=== PATIENT | female | born 1940 | race Caucasian/White ===

== ENCOUNTER 2017-08-05 12:08 | Inpatient (IN) | payer OTHER, BC ==
[~2017-08-05] VITALS: Ht 163.8 cm; Wt 78.4 kg
[~2017-08-05 12:08] MED LIST: AVALIDE 150-121 EACH PO; CALTRATE + D PO; CALTRATE 600600 MG PO; CENTRUM SILVER1 EAC3 PO; CENTRUM SILVER1 EAC5 PO; CLIMARA0.05 MG PO; CLIMARA0.05 MG TD; Chloraseptic Spray C MM; Claritin,Alavart PO; DUONEB3 ML IH; Habitrol,Nicoderm CQ TD; Tears Naturale II,Ar BOTH EYES; Xopenex HFA Inhaler IH; predniSONE PO
[2017-08-05 13:08] LABS: BASOPHIL (%) 0.3 % (0-1); EOSINOPHIL (%) 0.1 % (0-5); HEMATOCRIT 33.7 % (36.0-46.0); HEMOGLOBIN 10.8 G/DL (11.9-15.5); IMMATURE GRANULOCYTE (%) 0.5 % (0.0-0.7); LYMPHOCYTE (%) 5.4 % (15-42); LYMPHOCYTE COUNT 0.6 K/uL (1.0-2.8); MCH 28.5 PG (29.0-34.0); MCV 88.9 FL (83-99); MONOCYTE (%) 6.7 % (3-12); MONOCYTE COUNT 0.7 K/uL (0-0.8); NEUTROPHIL COUNT 9.4 K/uL (1.8-6.4); PLATELET COUNT 208 K/uL (156-360); RBC DIS.WIDTH-CV 13.3 % (11.8-14.6); RBC DIS.WIDTH-SD 43.5 % (39-53); RED BLOOD COUNT 3.79 M/uL (3.80-5.20); WHITE BLOOD COUNT 10.8 K/uL (4.1-10.2)
[2017-08-05 13:21] LABS: ALBUMIN 4.2 g/dL (3.2-4.8)
[2017-08-05 13:22] LABS: CHLORIDE 100 mEq/L (99-109); POTASSIUM 3.9 mEq/L (3.7-5.4); SODIUM 140 mEq/L (136-147)
[2017-08-05 13:24] LABS: GLUCOSE 137 mg/dL (70-99); TOTAL PROTEIN 6.9 g/dL (6.4-8.3)
[2017-08-05 13:26] LABS: TOTAL BILIRUBIN 0.5 mg/dL (0.0-1.0)
[2017-08-05 13:27] LABS: ALKALINE PHOSPHATASE 93 IU/L (3-129)
[2017-08-05 13:28] LABS: CREATININE 0.8 mg/dL (0.6-1.3); GFR ESTIMATE (CALCULATED) > 59 mL/min/
[2017-08-05 13:29] LABS: AST (GOT) 31 IU/L (2-34); UREA NITROGEN (BUN) 15 mg/dL (9-23)
[2017-08-05 13:30] LABS: ALT (GPT) 26 IU/L (3-49)
[2017-08-05 13:32] LABS: TROP-I INTERPRETATION NEGATIVE; TROPONIN-I < 0.01 ng/mL (0.0-0.30)
[2017-08-05] MEDS ORDERED: HYZAAR 100-21 TABLET PO (15:12)
[2017-08-05] MEDS ORDERED: CALTRATE PLUS1 EACH PO (15:12)
[2017-08-05] MEDS ORDERED: ASCORBIC ACID500 M3 PO (15:13)
[2017-08-05] MEDS ORDERED: BREO ELLIPTA I1 EACH IH (15:13)
[2017-08-05 17:01] VITALS: BP 153/67
[2017-08-05 19:30] VITALS: BP 142/66
[2017-08-05 19:40] LABS: TROP-I INTERPRETATION NEGATIVE; TROPONIN-I 0.04 ng/mL (0.0-0.30)
[2017-08-05 23:51] VITALS: BP 153/71
[2017-08-06 01:38] LABS: TROP-I INTERPRETATION NEGATIVE; TROPONIN-I 0.18 ng/mL (0.0-0.30)
[2017-08-06 03:31] VITALS: BP 164/74
[2017-08-06 05:34] LABS: CHLORIDE 100 mEq/L (99-109); POTASSIUM 4.3 mEq/L (3.7-5.4); SODIUM 138 mEq/L (136-147)
[2017-08-06 05:35] LABS: GLUCOSE 179 mg/dL (70-99)
[2017-08-06 05:39] LABS: GFR ESTIMATE (CALCULATED) 57 mL/min/
[2017-08-06 05:42] LABS: UREA NITROGEN (BUN) 23 mg/dL (9-23)
[2017-08-06 09:15] VITALS: BP 158/73
[2017-08-06 09:59] LABS: TROP-I INTERPRETATION NEGATIVE; TROPONIN-I 0.23 ng/mL (0.0-0.30)
[2017-08-06 12:11] VITALS: BP 178/90
[2017-08-06 15:16] LABS: TROP-I INTERPRETATION NEGATIVE; TROPONIN-I 0.21 ng/mL (0.0-0.30)
[2017-08-06 16:05] VITALS: BP 143/70
[2017-08-07 00:07] VITALS: BP 135/65
[2017-08-07 04:10] VITALS: BP 134/72
[2017-08-07 07:20] VITALS: BP 134/78
[2017-08-07] MEDS ORDERED: AMOX TR-K CLV1 EAC4 PO (12:28)
[2017-08-07] MEDS ORDERED: CARDIZEM CD,CA120 MG PO (12:33)
[2017-08-07] MEDS ORDERED: PREDNISONE10 MG PO (12:37)
[2017-08-07 12:41] VITALS: BP 149/71
== END 2017-08-07 15:54 | disposition home health service (06) | DRG 192 ==
LOC: 5WEST → EME 12:08 → EDOF 14:59 → 5WEST 14:59 → EDOF 14:59 → ENRESERV 15:10 → 5WEST 16:48
PROVIDERS: Emergency Medicine; Internal Medicine; Nurse Practitioner Adult Health
DX: J44.1 Chronic obstructive pulmonary disease with (acute) exacerbation (principal); J44.0 Chronic obstructive pulmonary disease with (acute) lower respiratory infection; J20.9 Acute bronchitis, unspecified; I10 Essential (primary) hypertension; D64.9 Anemia, unspecified; E66.3 Overweight; Z87.891 Personal history of nicotine dependence; Z99.81 Dependence on supplemental oxygen; Z90.710 Acquired absence of both cervix and uterus; Z85.41 Personal history of malignant neoplasm of cervix uteri; Z90.49 Acquired absence of other specified parts of digestive tract; Z68.29 Body mass index [BMI] 29.0-29.9, adult; Z79.51 Long term (current) use of inhaled steroids; Z80.9 Family history of malignant neoplasm, unspecified; Z82.49 Family history of ischemic heart disease and other diseases of the circulatory system
CPT/HCPCS: 71046; 80048; 80053; 84484; 85025; 85379; 87502; 93005; 93306; 94640; 94640 76; 94799; 99202; G0378; J1650; J2920; J2930

== ENCOUNTER 2017-09-21 09:54 | Day surgery (SDC) | payer OTHER, BC ==
[~2017-09-21] VITALS: Ht 165.1 cm; Wt 79.8 kg
[~2017-09-21 09:54] MED LIST changes: +AMOX TR-K CLV1 EAC4 PO; +ASCORBIC ACID500 M3 PO; +ATORVASTATIN CA40 MG PO; +BREO ELLIPTA I1 EACH IH; +CALTRATE PLUS1 EACH PO; +CARDIZEM CD,CA120 MG PO; +CARDIZEM CD,CA240 MG PO; +FLONASE16 G1 BOTH NARES; +HYZAAR 100-21 TABLET PO; +PREDNISONE10 MG PO; +PROAIR HFA8.5 GM IH; +PROBIOTIC250 MG PO; +VITAMIN C WIT1000 MG PO
[2017-09-21 15:17] VITALS: BP 138/66
[2017-09-21 16:00] VITALS: BP 138/66
[2017-09-21 19:15] VITALS: BP 127/60
[2017-09-21 23:58] VITALS: BP 180/79
[2017-09-22 00:01] VITALS: BP 158/70
[2017-09-22 02:50] VITALS: BP 112/72
[2017-09-22 05:40] LABS: BASOPHIL (%) 0.3 % (0-1); EOSINOPHIL (%) 0.3 % (0-5); HEMOGLOBIN 9.3 G/DL (11.9-15.5); IMMATURE GRANULOCYTE (%) 0.3 % (0.0-0.7); LYMPHOCYTE (%) 12.2 % (15-42); LYMPHOCYTE COUNT 0.8 K/uL (1.0-2.8); MCH 28.4 PG (29.0-34.0); MCV 91.5 FL (83-99); MONOCYTE (%) 10.3 % (3-12); MONOCYTE COUNT 0.6 K/uL (0-0.8); NEUTROPHIL (%) 76.6 % (45-76); NEUTROPHIL COUNT 4.8 K/uL (1.8-6.4); RBC DIS.WIDTH-CV 14.5 % (11.8-14.6); RBC DIS.WIDTH-SD 48.9 % (39-53); RED BLOOD COUNT 3.28 M/uL (3.80-5.20); WHITE BLOOD COUNT 6.2 K/uL (4.1-10.2)
[2017-09-22 06:09] LABS: CHLORIDE 103 MEQ/L (99-109); CREATININE 0.8 MG/DL (0.6-1.3); GFR ESTIMATE (CALCULATED) > 59 mL/min/; GLUCOSE 116 mg/dL (70-99); POTASSIUM 3.6 MEQ/L (3.7-5.4); SODIUM 141 MEQ/L (136-147); UREA NITROGEN (BUN) 13 mg/dL (9-23)
[2017-09-22 06:52] LABS: PLAT.SUFFICIENCY ADEQUATE; PLATELET COUNT 165 K/uL (156-360)
[2017-09-22 07:54] VITALS: BP 153/78
[2017-09-22] MEDS ORDERED: NITROSTAT0.4 MG SL (10:35)
[2017-09-22] MEDS ORDERED: ASPIR-LOW81 MG PO (10:35)
[2017-09-22] MEDS ORDERED: CLOPIDOGREL75 MG PO (10:35)
[2017-09-22] MEDS ORDERED: METOPROLOL SUCC25 MG PO (10:49)
[2017-09-22 11:20] VITALS: BP 147/66
== END 2017-09-22 14:10 | disposition home or self-care (01) ==
LOC: CATH 09:54 → ENRESERV 12:19 → 2SOUTH 12:45 → 4EAST 12:45 → 2SOUTH 12:45 → ENRESERV 12:52 → 4EAST 15:08 → ENPENDDIS 09-22 14:00 → 4EAST 09-22 14:10
PROVIDERS: Internal Medicine Cardiovascular Disease
DX: I25.10 Atherosclerotic heart disease of native coronary artery without angina pectoris (principal); I25.41 Coronary artery aneurysm; J44.9 Chronic obstructive pulmonary disease, unspecified; Z99.81 Dependence on supplemental oxygen; I10 Essential (primary) hypertension; I27.20 Pulmonary hypertension, unspecified; D64.9 Anemia, unspecified; R04.0 Epistaxis
CPT/HCPCS: 80048; 85025; 85347; 93005; 94640; 94799; 99202; C1725; C1769; C1874; C1887; G0378; J0583; J1644; J2250; J3010; J7030

== ENCOUNTER 2017-10-09 13:18 | Inpatient (IN) | payer OTHER, BC ==
[~2017-10-09] VITALS: Ht 165.1 cm; Wt 98.9 kg
[~2017-10-09 13:18] MED LIST changes: +ASPIR-LOW81 MG PO; +CLOPIDOGREL75 MG PO; +HYZAAR 100-11 TABLET PO; -HYZAAR 100-21 TABLET PO; +METOPROLOL SUCC25 MG PO; +NITROSTAT0.4 MG SL
[2017-10-09 14:29] LABS: HEMATOCRIT 29.8 % (36.0-46.0); HEMOGLOBIN 9.6 G/DL (11.9-15.5); MCH 29.2 PG (29.0-34.0); MCHC 32.2 G/DL (30.0-36.0); MCV 90.6 FL (83-99); PLATELET COUNT 183 K/uL (156-360); RBC DIS.WIDTH-CV 13.7 % (11.8-14.6); RBC DIS.WIDTH-SD 45.7 % (39-53); RED BLOOD COUNT 3.29 M/uL (3.80-5.20); WHITE BLOOD COUNT 4.7 K/uL (4.1-10.2)
[2017-10-09 14:40] LABS: D-DIMER ELISA < 150.00 ng/mLDDU (<230)
[2017-10-09 14:43] LABS: CHLORIDE 98 mEq/L (99-109); POTASSIUM 3.7 mEq/L (3.7-5.4); SODIUM 142 mEq/L (136-147)
[2017-10-09 14:44] LABS: GLUCOSE 123 mg/dL (70-99)
[2017-10-09 14:48] LABS: CREATININE 0.9 mg/dL (0.6-1.3); GFR ESTIMATE (CALCULATED) > 59 mL/min/
[2017-10-09 14:49] LABS: UREA NITROGEN (BUN) 14 mg/dL (9-23)
[2017-10-09 14:52] LABS: TROP-I INTERPRETATION NEGATIVE; TROPONIN-I < 0.01 ng/mL (0.0-0.30)
[2017-10-09] MEDS ORDERED: DUONEB 2.5-0.5 M3 ML AEROSOL (17:06)
[2017-10-09] MEDS ORDERED: CLOPIDOGREL75 MG PO (17:07)
[2017-10-09] MEDS ORDERED: METOPROLOL SUCC25 MG PO (17:07)
[2017-10-09] MEDS ORDERED: ASPIR 8181 M1 PO (17:07)
[2017-10-09] MEDS ORDERED: NITROSTAT0.4 MG SL (17:08)
[2017-10-09] MEDS ORDERED: OXYGEN MC (17:10)
[2017-10-09 21:31] VITALS: BP 161/77
[2017-10-09 22:51] LABS: TROP-I INTERPRETATION NEGATIVE; TROPONIN-I < 0.01 ng/mL (0.0-0.30)
[2017-10-09 23:30] VITALS: BP 151/80
[2017-10-10 03:43] VITALS: BP 157/85
[2017-10-10 05:39] LABS: HEMOGLOBIN 9.9 G/DL (11.9-15.5); MCH 27.9 PG (29.0-34.0); MCHC 30.9 G/DL (30.0-36.0); MCV 90.1 FL (83-99); PLATELET COUNT 228 K/uL (156-360); RBC DIS.WIDTH-CV 13.5 % (11.8-14.6); RBC DIS.WIDTH-SD 45.1 % (39-53); RED BLOOD COUNT 3.55 M/uL (3.80-5.20); WHITE BLOOD COUNT 3.3 K/uL (4.1-10.2)
[2017-10-10 06:02] LABS: CHLORIDE 95 MEQ/L (99-109); CREATININE 0.8 MG/DL (0.6-1.3); GFR ESTIMATE (CALCULATED) > 59 mL/min/; GLUCOSE 162 mg/dL (70-99); POTASSIUM 3.7 MEQ/L (3.7-5.4); SODIUM 140 MEQ/L (136-147); UREA NITROGEN (BUN) 13 mg/dL (9-23)
[2017-10-10 07:25] VITALS: BP 185/85
[2017-10-10 11:19] VITALS: BP 166/80
[2017-10-10 17:08] VITALS: BP 163/77
[2017-10-10 19:10] VITALS: BP 166/77
[2017-10-10 23:06] VITALS: BP 133/60
[2017-10-11 04:35] VITALS: BP 127/64
[2017-10-11 08:00] VITALS: BP 135/68
[2017-10-11] MEDS ORDERED: ZITHROMAX500 MG PO (10:05)
[2017-10-11] MEDS ORDERED: PREDNISONE10 MG PO (10:08)
== END 2017-10-11 11:06 | disposition home or self-care (01) | DRG 190 ==
LOC: EME 13:18 → 5WEST 20:25 → EDOF 20:25 → ENRESERV 20:43 → 5WEST 21:27
PROVIDERS: Hospitalist; Physician Assistant Medical
DX: J44.1 Chronic obstructive pulmonary disease with (acute) exacerbation (principal); J96.21 Acute and chronic respiratory failure with hypoxia; I10 Essential (primary) hypertension; Z99.81 Dependence on supplemental oxygen; Z95.5 Presence of coronary angioplasty implant and graft; Z87.891 Personal history of nicotine dependence
CPT/HCPCS: 71046; 80048; 83880; 84484; 85027; 85379; 93005; 94640; 94640 76; 94799; 99202; 99281; 99285; G0378; J0360; J0456; J1644; J2920; J2930; J3475; J7030

== ENCOUNTER 2017-11-07 18:56 | Inpatient (IN) | payer OTHER, BC ==
[~2017-11-07] VITALS: Ht 165.1 cm; Wt 84.6 kg
[~2017-11-07 18:56] MED LIST changes: +ASPIR 8181 M1 PO; +DUONEB 2.5-0.5 M3 ML AEROSOL; +OXYGEN MC; +ZITHROMAX500 MG PO
[2017-11-07 19:25] LABS: HEMATOCRIT 25.6 % (36.0-46.0); MCH 28.8 PG (29.0-34.0); MCHC 31.3 G/DL (30.0-36.0); MCV 92.1 FL (83-99); RBC DIS.WIDTH-CV 14.5 % (11.8-14.6); RBC DIS.WIDTH-SD 49.1 % (39-53); WHITE BLOOD COUNT 4.4 K/uL (4.1-10.2)
[2017-11-07 19:26] LABS: PLATELET COUNT 309 K/uL (156-360); RED BLOOD COUNT 2.78 M/uL (3.80-5.20)
[2017-11-07 19:34] LABS: PTT 30.2 SEC (25-37)
[2017-11-07 20:02] LABS: ALBUMIN 3.9 G/DL (3.2-4.8); ALKALINE PHOSPHATASE 81 IU/L (3-129); ALT (GPT) 11 IU/L (3-49); AST (GOT) 16 IU/L (2-34); CHLORIDE 101 MEQ/L (99-109); CREATININE 0.8 MG/DL (0.6-1.3); GFR ESTIMATE (CALCULATED) > 59 mL/min/; GLUCOSE 132 mg/dL (70-99); POTASSIUM 3.5 MEQ/L (3.7-5.4); SODIUM 141 MEQ/L (136-147); TOTAL BILIRUBIN 0.3 MG/DL (0.0-1.0); TOTAL PROTEIN 6.4 G/DL (6.4-8.3); UREA NITROGEN (BUN) 11 mg/dL (9-23)
[2017-11-08] VITALS (13 sets, daily range): BP systolic 115–175; BP diastolic 60–78
[2017-11-08 08:19] LABS: HEMATOCRIT 29.5 % (36.0-46.0); HEMOGLOBIN 9.3 G/DL (11.9-15.5); MCV 89.9 FL (83-99)
[2017-11-08 20:05] LABS: HEMATOCRIT 30.3 % (36.0-46.0); HEMOGLOBIN 9.5 G/DL (11.9-15.5); MCV 89.6 FL (83-99)
[2017-11-09 04:03] VITALS: BP 137/65
[2017-11-09 06:43] LABS: CHLORIDE 103 MEQ/L (99-109); CREATININE 0.7 MG/DL (0.6-1.3); GFR ESTIMATE (CALCULATED) > 59 mL/min/; GLUCOSE 109 mg/dL (70-99); POTASSIUM 3.8 MEQ/L (3.7-5.4); SODIUM 144 MEQ/L (136-147); UREA NITROGEN (BUN) 5 mg/dL (9-23)
[2017-11-09 07:58] VITALS: BP 164/72
[2017-11-09 08:34] LABS: HEMATOCRIT 32.8 % (36.0-46.0); HEMOGLOBIN 10.2 G/DL (11.9-15.5); MCV 91.1 FL (83-99)
[2017-11-09 19:56] VITALS: BP 136/64
[2017-11-09 20:25] LABS: HEMATOCRIT 30.6 % (36.0-46.0); HEMOGLOBIN 9.4 G/DL (11.9-15.5); MCV 92.4 FL (83-99)
[2017-11-09 23:21] VITALS: BP 132/68
[2017-11-10 03:55] VITALS: BP 137/64
[2017-11-10 08:02] VITALS: BP 147/65
[2017-11-10 09:22] LABS: HEMATOCRIT 31.6 % (36.0-46.0); HEMOGLOBIN 9.5 G/DL (11.9-15.5); MCV 92.4 FL (83-99)
[2017-11-10 12:05] VITALS: BP 165/70
[2017-11-10 16:13] VITALS: BP 121/62
[2017-11-10 20:20] LABS: HEMATOCRIT 28.3 % (36.0-46.0); HEMOGLOBIN 8.8 G/DL (11.9-15.5); MCV 91.9 FL (83-99)
[2017-11-10 20:27] VITALS: BP 129/61
[2017-11-10 23:51] VITALS: BP 149/63
[2017-11-11 04:25] VITALS: BP 141/67
[2017-11-11 07:39] VITALS: BP 134/60
[2017-11-11 12:04] VITALS: BP 133/67
[2017-11-11 15:43] VITALS: BP 133/60
[2017-11-11 15:58] LABS: HEMATOCRIT 29.3 % (36.0-46.0); HEMOGLOBIN 9.1 G/DL (11.9-15.5); MCV 92.4 FL (83-99)
== END 2017-11-11 19:31 | disposition home or self-care (01) | DRG 394 ==
LOC: EME 18:56 → 3EAST 23:40 → EDOF 23:40 → ENRESERV 23:54 → 3EAST 11-08 02:42
PROVIDERS: Internal Medicine
PROC: 30233N1 Transfusion of Nonautologous Red Blood Cells into Peripheral Vein, Percutaneous Approach (ICD-10-PCS; 2017-11-07)
PROC: 0DJD8ZZ Inspection of Lower Intestinal Tract, Via Natural or Artificial Opening Endoscopic (ICD-10-PCS; principal; 2017-11-09)
DX: K63.5 Polyp of colon (principal); K57.30 Diverticulosis of large intestine without perforation or abscess without bleeding; K64.9 Unspecified hemorrhoids; J44.1 Chronic obstructive pulmonary disease with (acute) exacerbation; D50.0 Iron deficiency anemia secondary to blood loss (chronic); I25.10 Atherosclerotic heart disease of native coronary artery without angina pectoris; I25.41 Coronary artery aneurysm; Z99.81 Dependence on supplemental oxygen; I10 Essential (primary) hypertension; E78.5 Hyperlipidemia, unspecified; K80.20 Calculus of gallbladder without cholecystitis without obstruction; E66.9 Obesity, unspecified; Z68.31 Body mass index [BMI] 31.0-31.9, adult; I25.2 Old myocardial infarction; Z95.5 Presence of coronary angioplasty implant and graft; Z79.02 Long term (current) use of antithrombotics/antiplatelets; Z79.82 Long term (current) use of aspirin; Z87.891 Personal history of nicotine dependence; Z85.41 Personal history of malignant neoplasm of cervix uteri; Z90.710 Acquired absence of both cervix and uterus; Z80.1 Family history of malignant neoplasm of trachea, bronchus and lung; Z82.49 Family history of ischemic heart disease and other diseases of the circulatory system
CPT/HCPCS: 74177; 74270; 80048; 80053; 81003; 85014; 85018; 85027; 85610; 85730; 86850; 86900; 86901; 86920; 93005; 94640; 94640 76; 94799; 99202; 99281; 99285; J7030; P9016

== ENCOUNTER 2017-12-22 21:47 | Inpatient (IN) | payer OTHER, BC ==
[~2017-12-22] VITALS: Ht 165.1 cm; Wt 80.5 kg
[~2017-12-22 21:47] MED LIST changes: +ADULT LOW DOSE81 M1 PO; +CENTRUM SILVER1 EAC4 PO; +COZAAR100 MG PO; +FUROSEMIDE40 MG PO; +PLAVIX75 MG PO
[2017-12-23 06:32] VITALS: BP 139/63
[2017-12-23 09:43] LABS: METHEMOGLOBIN 0.8 % (0-1.5); PCO2 39 mm Hg (35-45); PO2 279 mm Hg (80-100); pH 7.46 (7.35-7.45)
[2017-12-23 09:44] LABS: BASE EXCESS 3.6 mEq/L (-3 to +3); BICARBONATE 17.7 mEq/L (22-26)
[2017-12-23 16:00] VITALS: BP 132/67
[2017-12-23 16:06] VITALS: BP 132/67
[2017-12-23 18:22] LABS: HEMATOCRIT 34.2 % (36.0-46.0); MCHC 32.2 G/DL (30.0-36.0); MCV 90.2 FL (83-99); PLATELET COUNT 195 K/uL (156-360); RBC DIS.WIDTH-CV 13.7 % (11.8-14.6); RBC DIS.WIDTH-SD 45.7 % (39-53); RED BLOOD COUNT 3.79 M/uL (3.80-5.20); WHITE BLOOD COUNT 11.4 K/uL (4.1-10.2)
[2017-12-23 18:47] LABS: CHLORIDE 106 MEQ/L (99-109); GFR ESTIMATE (CALCULATED) 57 mL/min/; GLUCOSE 174 mg/dL (70-99); MAGNESIUM 1.4 mg/dl (1.3-2.7); PHOSPHORUS 4.1 mg/dL (2.5-4.9); POTASSIUM 3.7 MEQ/L (3.7-5.4); SODIUM 140 MEQ/L (136-147); UREA NITROGEN (BUN) 12 mg/dL (9-23)
[2017-12-23 19:47] VITALS: BP 136/71
[2017-12-23 23:17] VITALS: BP 113/53
[2017-12-24 04:07] VITALS: BP 114/59
[2017-12-24 05:06] LABS: HEMATOCRIT 32.2 % (36.0-46.0); HEMOGLOBIN 10.2 G/DL (11.9-15.5); MCH 28.5 PG (29.0-34.0); MCHC 31.7 G/DL (30.0-36.0); MCV 89.9 FL (83-99); PLATELET COUNT 195 K/uL (156-360); RBC DIS.WIDTH-CV 14.2 % (11.8-14.6); RBC DIS.WIDTH-SD 46.6 % (39-53); RED BLOOD COUNT 3.58 M/uL (3.80-5.20); WHITE BLOOD COUNT 15.2 K/uL (4.1-10.2)
[2017-12-24 05:55] LABS: CHLORIDE 105 MEQ/L (99-109); CREATININE 1.3 MG/DL (0.6-1.3); GFR ESTIMATE (CALCULATED) 42 mL/min/; GLUCOSE 147 mg/dL (70-99); MAGNESIUM 1.3 mg/dl (1.3-2.7); PHOSPHORUS 3.2 mg/dL (2.5-4.9); POTASSIUM 4.1 MEQ/L (3.7-5.4); SODIUM 139 MEQ/L (136-147); UREA NITROGEN (BUN) 18 mg/dL (9-23)
[2017-12-24 07:13] VITALS: BP 122/67
[2017-12-24 11:10] VITALS: BP 115/65
[2017-12-24 15:22] VITALS: BP 103/59
[2017-12-24 20:20] VITALS: BP 115/57
[2017-12-25] VITALS (9 sets, daily range): BP systolic 103–164; BP diastolic 61–82
[2017-12-25 09:40] LABS: HEMATOCRIT 29.6 % (36.0-46.0); HEMOGLOBIN 9.2 G/DL (11.9-15.5); MCH 28.8 PG (29.0-34.0); MCHC 31.1 G/DL (30.0-36.0); MCV 92.8 FL (83-99); RBC DIS.WIDTH-CV 14.5 % (11.8-14.6); RBC DIS.WIDTH-SD 49.5 % (39-53); RED BLOOD COUNT 3.19 M/uL (3.80-5.20); WHITE BLOOD COUNT 15.1 K/uL (4.1-10.2)
[2017-12-25 10:05] LABS: CHLORIDE 102 MEQ/L (99-109); GLUCOSE 159 mg/dL (70-99); PHOSPHORUS 3.4 mg/dL (2.5-4.9); POTASSIUM 4.4 MEQ/L (3.7-5.4); SODIUM 135 MEQ/L (136-147); UREA NITROGEN (BUN) 23 mg/dL (9-23)
[2017-12-25 10:06] LABS: CREATININE 1.8 MG/DL (0.6-1.3); GFR ESTIMATE (CALCULATED) 29 mL/min/; MAGNESIUM 2.5 mg/dl (1.3-2.7)
[2017-12-25 10:14] LABS: PLAT.SUFFICIENCY ADEQUATE; PLATELET COUNT 178 K/uL (156-360)
[2017-12-25 15:36] LABS: TROP-I INTERPRETATION NEGATIVE; TROPONIN-I < 0.01 ng/mL (0.0-0.30)
[2017-12-25 21:17] LABS: TROP-I INTERPRETATION NEGATIVE; TROPONIN-I 0.01 ng/mL (0.0-0.30)
[2017-12-26] VITALS (10 sets, daily range): BP systolic 101–196; BP diastolic 61–89
[2017-12-26 02:15] LABS: HEMATOCRIT 30.4 % (36.0-46.0); HEMOGLOBIN 9.7 G/DL (11.9-15.5); MCV 91.6 FL (83-99)
[2017-12-26 02:25] LABS: CHLORIDE 105 mEq/L (99-109); POTASSIUM 4.6 mEq/L (3.7-5.4); SODIUM 137 mEq/L (136-147)
[2017-12-26 02:26] LABS: MAGNESIUM 2.4 mg/dL (1.3-2.7)
[2017-12-26 02:28] LABS: GLUCOSE 159 mg/dL (70-99)
[2017-12-26 02:31] LABS: CREATININE 1.7 mg/dL (0.6-1.3); GFR ESTIMATE (CALCULATED) 31 mL/min/; PHOSPHORUS 3.5 mg/dL (2.5-4.9)
[2017-12-26 02:32] LABS: UREA NITROGEN (BUN) 26 mg/dL (9-23)
[2017-12-26 02:41] LABS: TROP-I INTERPRETATION NEGATIVE; TROPONIN-I 0.02 ng/mL (0.0-0.30)
[2017-12-26 08:20] LABS: HEMOGLOBIN 9.6 G/DL (11.9-15.5); MCH 28.6 PG (29.0-34.0); MCV 92.3 FL (83-99); PLATELET COUNT 166 K/uL (156-360); RBC DIS.WIDTH-CV 14.5 % (11.8-14.6); RBC DIS.WIDTH-SD 49.2 % (39-53); RED BLOOD COUNT 3.36 M/uL (3.80-5.20); WHITE BLOOD COUNT 14.9 K/uL (4.1-10.2)
[2017-12-26 20:13] LABS: BASE EXCESS -4.5 mEq/L (-3 to +3); O2 SATURATION (CALCULATED) 91 % (95-99); PCO2 106 mm Hg (35-45); PO2 80 mm Hg (80-100); pH 7.03 (7.35-7.45)
[2017-12-26 20:14] LABS: COMMENTS - BLOOD GASES A+C; DEVICE HHFNC; FI02 60 %; O2 FLOW 50 L/MIN; SITE RR; TOTAL RESP RATE 21 resp/min
[2017-12-26 21:33] LABS: COMMENTS - BLOOD GASES C+; DEVICE 840 VENT; FI02 90 %; MECHANICAL RATE 16 resp/min; MODE AC PC; SITE ALINE; TOTAL RESP RATE 16 resp/min
[2017-12-26 21:34] LABS: BASE EXCESS -4.6 mEq/L (-3 to +3); BICARBONATE 26.1 mEq/L (22-26); CARBOXY HGB 1.6 % (0-5); INSPIRATION TIME 1.45 seconds; METHEMOGLOBIN 0.9 % (0-1.5); O2 SATURATION (CALCULATED) 99.9 % (95-99); PCO2 86 mm Hg (35-45); PEEP 5 CM/H20; PO2 348 mm Hg (80-100); PRESSURE CONTROL VENTILATION 32 CM H20; pH 7.09 (7.35-7.45)
[2017-12-26 21:43] LABS: HEMOGLOBIN 9.2 G/DL (11.9-15.5); MCHC 29.7 G/DL (30.0-36.0); MCV 94.5 FL (83-99); RBC DIS.WIDTH-CV 14.4 % (11.8-14.6); RBC DIS.WIDTH-SD 49.3 % (39-53); RED BLOOD COUNT 3.28 M/uL (3.80-5.20); WHITE BLOOD COUNT 13.6 K/uL (4.1-10.2)
[2017-12-26 21:50] LABS: PTT 26.2 SEC (25-37)
[2017-12-26 22:00] LABS: ALBUMIN 3.8 G/DL (3.2-4.8); ALKALINE PHOSPHATASE 50 IU/L (3-129); ALT (GPT) 15 IU/L (3-49); AST (GOT) 18 IU/L (2-34); CHLORIDE 107 MEQ/L (99-109); CREATININE 1.6 MG/DL (0.6-1.3); GFR ESTIMATE (CALCULATED) 33 mL/min/; GLUCOSE 205 mg/dL (70-99); MAGNESIUM 2.5 mg/dl (1.3-2.7); POTASSIUM 5.3 MEQ/L (3.7-5.4); SODIUM 136 MEQ/L (136-147); TOTAL BILIRUBIN 0.6 MG/DL (0.0-1.0); TOTAL PROTEIN 5.7 G/DL (6.4-8.3); UREA NITROGEN (BUN) 31 mg/dL (9-23)
[2017-12-26 22:16] LABS: PLAT.SUFFICIENCY ADEQUATE; PLATELET COUNT 175 K/uL (156-360)
[2017-12-27] VITALS: BP 127/61
[2017-12-27 00:05] LABS: COMMENTS - BLOOD GASES C+; DEVICE VENT; FI02 40 %; INSPIRATION TIME 1.15 seconds; MECHANICAL RATE 20 resp/min; MODE PC; PRESSURE CONTROL VENTILATION 30 CM H20; SITE ALINE; TOTAL RESP RATE 20 resp/min
[2017-12-27 00:06] LABS: PEEP 5 CM/H20
[2017-12-27 00:07] LABS: BASE EXCESS -5.6 mEq/L (-3 to +3); BICARBONATE 22.9 mEq/L (22-26); CARBOXY HGB 1.7 % (0-5); METHEMOGLOBIN 1.2 % (0-1.5); O2 SATURATION (CALCULATED) 97.9 % (95-99); PCO2 60 mm Hg (35-45); PO2 90 mm Hg (80-100); pH 7.19 (7.35-7.45)
[2017-12-27 05:09] LABS: SITE ALINE
[2017-12-27 05:10] LABS: CARBOXY HGB 1.2 % (0-5); COMMENTS - BLOOD GASES C+; DEVICE VENT; FI02 40 %; INSPIRATION TIME 1.15 seconds; MECHANICAL RATE 24 resp/min; MODE PC; O2 SATURATION (CALCULATED) 98.4 % (95-99); PCO2 39 mm Hg (35-45); PEEP 5 CM/H20; PO2 133 mm Hg (80-100); PRESSURE CONTROL VENTILATION 30 CM H20; TOTAL RESP RATE 24 resp/min; pH 7.34 (7.35-7.45)
[2017-12-27 05:11] LABS: BASE EXCESS -4.4 mEq/L (-3 to +3); METHEMOGLOBIN 1.7 % (0-1.5)
[2017-12-27 05:40] LABS: HEMOGLOBIN 8.9 G/DL (11.9-15.5); MCH 28.3 PG (29.0-34.0); MCHC 30.7 G/DL (30.0-36.0); MCV 92.1 FL (83-99); PLATELET COUNT 164 K/uL (156-360); RBC DIS.WIDTH-CV 14.5 % (11.8-14.6); RBC DIS.WIDTH-SD 49.1 % (39-53); RED BLOOD COUNT 3.15 M/uL (3.80-5.20); WHITE BLOOD COUNT 9.9 K/uL (4.1-10.2)
[2017-12-27 06:33] LABS: CHLORIDE 106 MEQ/L (99-109); CREATININE 1.6 MG/DL (0.6-1.3); GFR ESTIMATE (CALCULATED) 33 mL/min/; GLUCOSE 246 mg/dL (70-99); MAGNESIUM 2.4 mg/dl (1.3-2.7); PHOSPHORUS 1.3 mg/dL (2.5-4.9); POTASSIUM 4.1 MEQ/L (3.7-5.4); SODIUM 138 MEQ/L (136-147); UREA NITROGEN (BUN) 31 mg/dL (9-23)
[2017-12-27 08:00] VITALS: BP 130/68
[2017-12-27 11:58] LABS: COMMENTS - BLOOD GASES +C; DEVICE PB980; FI02 30 %; INSPIRATION TIME 0.7 seconds; MECHANICAL RATE 20 resp/min; MODE ACPC; PCO2 35 mm Hg (35-45); PEEP 5 CM/H20; PO2 85 mm Hg (80-100); PRESSURE CONTROL VENTILATION 25 CM H20; SITE A-LINE; TOTAL RESP RATE 20 resp/min; pH 7.43 (7.35-7.45)
[2017-12-27 11:59] LABS: BASE EXCESS -0.9 mEq/L (-3 to +3); BICARBONATE 23.2 mEq/L (22-26); CARBOXY HGB 1.4 % (0-5); METHEMOGLOBIN 1.3 % (0-1.5); O2 SATURATION (CALCULATED) 98.4 % (95-99)
[2017-12-27 15:26] LABS: COMMENTS - BLOOD GASES +C; DEVICE PB980; FI02 30 %; MODE SPONT; PCO2 49 mm Hg (35-45); PEEP 5 CM/H20; PO2 66 mm Hg (80-100); PRES. SUPPORT 5 CM/H2O; SITE A-LINE; TOTAL RESP RATE 24 resp/min
[2017-12-27 15:27] LABS: BASE EXCESS -2.5 mEq/L (-3 to +3); BICARBONATE 24.1 mEq/L (22-26); CARBOXY HGB 1.7 % (0-5); O2 SATURATION (CALCULATED) 95.2 % (95-99)
[2017-12-27 22:00] VITALS: BP 139/70
[2017-12-28 06:13] LABS: HEMATOCRIT 29.8 % (36.0-46.0); HEMOGLOBIN 9.2 G/DL (11.9-15.5); MCH 28.1 PG (29.0-34.0); MCHC 30.9 G/DL (30.0-36.0); MCV 91.1 FL (83-99); PLATELET COUNT 192 K/uL (156-360); RBC DIS.WIDTH-CV 14.6 % (11.8-14.6); RBC DIS.WIDTH-SD 49.6 % (39-53); RED BLOOD COUNT 3.27 M/uL (3.80-5.20); WHITE BLOOD COUNT 15.4 K/uL (4.1-10.2)
[2017-12-28 06:43] LABS: CHLORIDE 107 MEQ/L (99-109); CREATININE 1.3 MG/DL (0.6-1.3); GFR ESTIMATE (CALCULATED) 42 mL/min/; GLUCOSE 172 mg/dL (70-99); MAGNESIUM 2.5 mg/dl (1.3-2.7); POTASSIUM 4.6 MEQ/L (3.7-5.4); SODIUM 138 MEQ/L (136-147); UREA NITROGEN (BUN) 37 mg/dL (9-23)
[2017-12-28 06:44] LABS: PHOSPHORUS 2.2 mg/dL (2.5-4.9)
[2017-12-28 20:00] VITALS: BP 170/93
[2017-12-28 23:00] VITALS: BP 160/87
[2017-12-29] VITALS (18 sets, daily range): BP systolic 110–177; BP diastolic 50–86
[2017-12-29 05:53] LABS: BASOPHIL (%) 0.1 % (0-1); EOSINOPHIL (%) 0 % (0-5); HEMATOCRIT 33.7 % (36.0-46.0); HEMOGLOBIN 10.3 G/DL (11.9-15.5); IMMATURE GRANULOCYTE (%) 0.8 % (0.0-0.7); LYMPHOCYTE (%) 1.1 % (15-42); LYMPHOCYTE COUNT 0.2 K/uL (1.0-2.8); MCH 28.3 PG (29.0-34.0); MCHC 30.6 G/DL (30.0-36.0); MCV 92.6 FL (83-99); MONOCYTE (%) 5.2 % (3-12); MONOCYTE COUNT 0.9 K/uL (0-0.8); NEUTROPHIL (%) 92.8 % (45-76); NEUTROPHIL COUNT 16.6 K/uL (1.8-6.4); RBC DIS.WIDTH-CV 14.6 % (11.8-14.6); RBC DIS.WIDTH-SD 50.6 % (39-53); RED BLOOD COUNT 3.64 M/uL (3.80-5.20); WHITE BLOOD COUNT 17.9 K/uL (4.1-10.2)
[2017-12-29 06:11] LABS: CHLORIDE 109 MEQ/L (99-109); CREATININE 1.3 MG/DL (0.6-1.3); GFR ESTIMATE (CALCULATED) 42 mL/min/; GLUCOSE 148 mg/dL (70-99); MAGNESIUM 2.5 mg/dl (1.3-2.7); PHOSPHORUS 3.4 mg/dL (2.5-4.9); POTASSIUM 5.2 MEQ/L (3.7-5.4); SODIUM 142 MEQ/L (136-147); UREA NITROGEN (BUN) 40 mg/dL (9-23)
[2017-12-29 06:26] LABS: PLATELET COUNT 261 K/uL (156-360)
[2017-12-30] VITALS (8 sets, daily range): BP systolic 131–174; BP diastolic 64–90
[2017-12-30 05:25] LABS: HEMATOCRIT 32.5 % (36.0-46.0); MCH 28.3 PG (29.0-34.0); MCHC 30.8 G/DL (30.0-36.0); MCV 92.1 FL (83-99); NRBC (%) 0.1 /100 WBC (0-0); PLATELET COUNT 246 K/uL (156-360); RBC DIS.WIDTH-CV 14.6 % (11.8-14.6); RBC DIS.WIDTH-SD 49.5 % (39-53); RED BLOOD COUNT 3.53 M/uL (3.80-5.20); WHITE BLOOD COUNT 13.9 K/uL (4.1-10.2)
[2017-12-30 05:55] LABS: CHLORIDE 110 MEQ/L (99-109); GLUCOSE 141 mg/dL (70-99); MAGNESIUM 2.5 mg/dl (1.3-2.7); PHOSPHORUS 3.1 mg/dL (2.5-4.9); POTASSIUM 4.7 MEQ/L (3.7-5.4); SODIUM 145 MEQ/L (136-147); UREA NITROGEN (BUN) 47 mg/dL (9-23)
[2017-12-30 06:48] LABS: CREATININE 1.2 MG/DL (0.6-1.3); GFR ESTIMATE (CALCULATED) 46 mL/min/
[2017-12-31] VITALS: BP 147/73
[2017-12-31 04:00] VITALS: BP 158/70
[2017-12-31 05:27] LABS: HEMATOCRIT 32.8 % (36.0-46.0); HEMOGLOBIN 9.9 G/DL (11.9-15.5); MCHC 30.2 G/DL (30.0-36.0); MCV 92.7 FL (83-99); PLATELET COUNT 235 K/uL (156-360); RBC DIS.WIDTH-CV 14.4 % (11.8-14.6); RBC DIS.WIDTH-SD 49.2 % (39-53); RED BLOOD COUNT 3.54 M/uL (3.80-5.20)
[2017-12-31 06:19] LABS: CHLORIDE 112 MEQ/L (99-109); GFR ESTIMATE (CALCULATED) 57 mL/min/; GLUCOSE 147 mg/dL (70-99); MAGNESIUM 2.4 mg/dl (1.3-2.7); PHOSPHORUS 3.7 mg/dL (2.5-4.9); POTASSIUM 4.2 MEQ/L (3.7-5.4); SODIUM 149 MEQ/L (136-147); UREA NITROGEN (BUN) 46 mg/dL (9-23)
[2017-12-31 12:13] VITALS: BP 162/74
[2017-12-31 16:17] VITALS: BP 135/64
[2017-12-31 21:00] VITALS: BP 142/65
[2017-12-31 21:43] LABS: HEMATOCRIT 30.6 % (36.0-46.0); HEMOGLOBIN 9.4 G/DL (11.9-15.5); MCH 28.8 PG (29.0-34.0); MCHC 30.7 G/DL (30.0-36.0); MCV 93.9 FL (83-99); NRBC (%) 0.1 /100 WBC (0-0); PLATELET COUNT 221 K/uL (156-360); RBC DIS.WIDTH-CV 14.5 % (11.8-14.6); RBC DIS.WIDTH-SD 50.5 % (39-53); RED BLOOD COUNT 3.26 M/uL (3.80-5.20); WHITE BLOOD COUNT 18.8 K/uL (4.1-10.2)
[2018-01-01] VITALS (10 sets, daily range): BP systolic 116–165; BP diastolic 55–79
[2018-01-01 01:26] LABS: HEMATOCRIT 30.2 % (36.0-46.0); HEMOGLOBIN 9.4 G/DL (11.9-15.5); MCHC 31.1 G/DL (30.0-36.0); MCV 93.2 FL (83-99); NRBC (%) 0.1 /100 WBC (0-0); PLATELET COUNT 212 K/uL (156-360); RBC DIS.WIDTH-CV 14.5 % (11.8-14.6); RBC DIS.WIDTH-SD 49.4 % (39-53); RED BLOOD COUNT 3.24 M/uL (3.80-5.20); WHITE BLOOD COUNT 18.8 K/uL (4.1-10.2)
[2018-01-01 04:59] LABS: HEMATOCRIT 30.2 % (36.0-46.0); MCH 28.1 PG (29.0-34.0); MCHC 29.8 G/DL (30.0-36.0); MCV 94.4 FL (83-99); NRBC (%) 0.2 /100 WBC (0-0); PLATELET COUNT 201 K/uL (156-360); RBC DIS.WIDTH-CV 14.2 % (11.8-14.6); RBC DIS.WIDTH-SD 49.6 % (39-53); WHITE BLOOD COUNT 12.1 K/uL (4.1-10.2)
[2018-01-01 12:38] LABS: HEMOGLOBIN 8.1 G/DL (11.9-15.5); MCV 94.4 FL (83-99)
[2018-01-01 19:00] LABS: HEMATOCRIT 29.5 % (36.0-46.0); HEMOGLOBIN 9.2 G/DL (11.9-15.5); MCV 94.2 FL (83-99)
[2018-01-02] VITALS (12 sets, daily range): BP systolic 112–148; BP diastolic 57–70
[2018-01-02 01:23] LABS: HEMATOCRIT 27.4 % (36.0-46.0); HEMOGLOBIN 8.8 G/DL (11.9-15.5); MCV 93.2 FL (83-99)
[2018-01-02 05:33] LABS: HEMATOCRIT 25.5 % (36.0-46.0); HEMOGLOBIN 8.1 G/DL (11.9-15.5); MCH 29.8 PG (29.0-34.0); MCHC 31.8 G/DL (30.0-36.0); MCV 93.8 FL (83-99); NRBC (%) 0.1 /100 WBC (0-0); PLATELET COUNT 151 K/uL (156-360); RBC DIS.WIDTH-CV 14.4 % (11.8-14.6); RBC DIS.WIDTH-SD 49.6 % (39-53); RED BLOOD COUNT 2.72 M/uL (3.80-5.20); WHITE BLOOD COUNT 23.6 K/uL (4.1-10.2)
[2018-01-02 05:34] LABS: INTER. NORMALIZED RATIO 1.1
[2018-01-02 05:57] LABS: ALBUMIN 2.7 G/DL (3.2-4.8); ALKALINE PHOSPHATASE 48 IU/L (3-129); ALT (GPT) 14 IU/L (3-49); AST (GOT) 14 IU/L (2-34); CHLORIDE 113 MEQ/L (99-109); CREATININE 1.1 MG/DL (0.6-1.3); GFR ESTIMATE (CALCULATED) 51 mL/min/; GLUCOSE 144 mg/dL (70-99); POTASSIUM 3.9 MEQ/L (3.7-5.4); SODIUM 148 MEQ/L (136-147); TOTAL BILIRUBIN 0.7 MG/DL (0.0-1.0); UREA NITROGEN (BUN) 48 mg/dL (9-23)
[2018-01-02 05:58] LABS: TOTAL PROTEIN 4.1 G/DL (6.4-8.3)
[2018-01-03] VITALS (14 sets, daily range): BP systolic 86–154; BP diastolic 49–96
[2018-01-03 05:23] LABS: HEMATOCRIT 28.3 % (36.0-46.0); HEMOGLOBIN 8.9 G/DL (11.9-15.5); INTER. NORMALIZED RATIO 1.1; MCH 29.3 PG (29.0-34.0); MCHC 31.4 G/DL (30.0-36.0); MCV 93.1 FL (83-99); PLATELET COUNT 186 K/uL (156-360); RBC DIS.WIDTH-CV 15.1 % (11.8-14.6); RBC DIS.WIDTH-SD 51.8 % (39-53); RED BLOOD COUNT 3.04 M/uL (3.80-5.20); WHITE BLOOD COUNT 25.2 K/uL (4.1-10.2)
[2018-01-03 05:49] LABS: ALBUMIN 2.9 G/DL (3.2-4.8); CHLORIDE 110 MEQ/L (99-109); CREATININE 1.2 MG/DL (0.6-1.3); GFR ESTIMATE (CALCULATED) 46 mL/min/; GLUCOSE 127 mg/dL (70-99); PHOSPHORUS 3.8 mg/dL (2.5-4.9); SODIUM 144 MEQ/L (136-147); UREA NITROGEN (BUN) 48 mg/dL (9-23)
[2018-01-03 13:03] LABS: PLATELET COUNT 153 K/uL (156-360)
[2018-01-03 13:12] LABS: HEMOGLOBIN 7.9 G/DL (11.9-15.5); MCH 29.7 PG (29.0-34.0); MCHC 31.6 G/DL (30.0-36.0); RBC DIS.WIDTH-CV 15.3 % (11.8-14.6); RBC DIS.WIDTH-SD 53.1 % (39-53); RED BLOOD COUNT 2.66 M/uL (3.80-5.20)
[2018-01-03 13:25] LABS: CHLORIDE 110 MEQ/L (99-109); CREATININE 1.2 MG/DL (0.6-1.3); GFR ESTIMATE (CALCULATED) 46 mL/min/; GLUCOSE 137 mg/dL (70-99); POTASSIUM 4.4 MEQ/L (3.7-5.4); SODIUM 143 MEQ/L (136-147); UREA NITROGEN (BUN) 48 mg/dL (9-23)
[2018-01-03 13:46] LABS: WHITE BLOOD COUNT 35.1 K/uL (4.1-10.2)
[2018-01-03 19:57] LABS: TROP-I INTERPRETATION NEGATIVE; TROPONIN-I 0.06 ng/mL (0.0-0.30)
[2018-01-03 20:05] LABS: COMMENTS - BLOOD GASES A+C+; DEVICE 840 PB; FI02 50 %; MECHANICAL RATE 16 resp/min; MODE AC; SITE RR; TOTAL RESP RATE 16 resp/min
[2018-01-03 20:06] LABS: BASE EXCESS 0.6 mEq/L (-3 to +3); METHEMOGLOBIN 1.1 % (0-1.5); O2 SATURATION (CALCULATED) 94.9 % (95-99); PCO2 44 mm Hg (35-45); PEEP 5 CM/H20; PO2 77 mm Hg (80-100); TIDAL VOLUME 500 ML; pH 7.38 (7.35-7.45)
[2018-01-04] VITALS (31 sets, daily range): BP systolic 96–133; BP diastolic 47–77
[2018-01-04 06:06] LABS: CHLORIDE 108 MEQ/L (99-109); CREATININE 1.4 MG/DL (0.6-1.3); GFR ESTIMATE (CALCULATED) 39 mL/min/; GLUCOSE 144 mg/dL (70-99); PHOSPHORUS 4.9 mg/dL (2.5-4.9); POTASSIUM 4.4 MEQ/L (3.7-5.4); SODIUM 144 MEQ/L (136-147); TROP-I INTERPRETATION NEGATIVE; TROPONIN-I 0.05 ng/mL (0.0-0.30); UREA NITROGEN (BUN) 52 mg/dL (9-23)
[2018-01-04 06:24] LABS: HEMATOCRIT 35.8 % (36.0-46.0); MCH 29.3 PG (29.0-34.0); MCHC 31.8 G/DL (30.0-36.0); PLATELET COUNT 161 K/uL (156-360); RBC DIS.WIDTH-CV 15.6 % (11.8-14.6); RBC DIS.WIDTH-SD 52.3 % (39-53); WHITE BLOOD COUNT 24.6 K/uL (4.1-10.2)
[2018-01-04 06:26] LABS: HEMOGLOBIN 11.4 G/DL (11.9-15.5); RED BLOOD COUNT 3.89 M/uL (3.80-5.20)
[2018-01-05] VITALS (23 sets, daily range): BP systolic 98–173; BP diastolic 51–81
[2018-01-05 05:09] LABS: BASOPHIL (%) 0.1 % (0-1); EOSINOPHIL (%) 0 % (0-5); IMMATURE GRANULOCYTE (%) 1.3 % (0.0-0.7); LYMPHOCYTE (%) 1.1 % (15-42); LYMPHOCYTE COUNT 0.2 K/uL (1.0-2.8); MCH 29.6 PG (29.0-34.0); MCHC 32.3 G/DL (30.0-36.0); MCV 91.7 FL (83-99); MONOCYTE COUNT 0.8 K/uL (0-0.8); NEUTROPHIL (%) 92.5 % (45-76); NEUTROPHIL COUNT 13.8 K/uL (1.8-6.4); PLATELET COUNT 147 K/uL (156-360); RBC DIS.WIDTH-CV 15.9 % (11.8-14.6); RBC DIS.WIDTH-SD 52.9 % (39-53); RED BLOOD COUNT 3.38 M/uL (3.80-5.20); WHITE BLOOD COUNT 14.9 K/uL (4.1-10.2)
[2018-01-05 05:40] LABS: ALBUMIN 2.4 G/DL (3.2-4.8); ALKALINE PHOSPHATASE 43 IU/L (3-129); ALT (GPT) 15 IU/L (3-49); AST (GOT) 18 IU/L (2-34); CHLORIDE 110 MEQ/L (99-109); CREATININE 1.5 MG/DL (0.6-1.3); DIRECT BILIRUBIN 0.1 mg/dL (0.0-0.3); GFR ESTIMATE (CALCULATED) 36 mL/min/; GLUCOSE 167 mg/dL (70-99); PREALBUMIN 8.6 mg/dL (10-40); SODIUM 144 MEQ/L (136-147); TRIGLYCERIDES 95 MG/DL (Normal: <150); UREA NITROGEN (BUN) 54 mg/dL (9-23)
[2018-01-05 05:41] LABS: PHOSPHORUS 2.8 mg/dL (2.5-4.9); TOTAL BILIRUBIN 0.4 MG/DL (0.0-1.0)
[2018-01-05 14:08] LABS: SITE RR
[2018-01-05 14:09] LABS: COMMENTS - BLOOD GASES NAC+; DEVICE MASK; FI02 50 %; PCO2 96 mm Hg (35-45); PO2 95 mm Hg (80-100); TOTAL RESP RATE 29 resp/min; pH 7.05 (7.35-7.45)
[2018-01-05 14:10] LABS: BASE EXCESS -5.8 mEq/L (-3 to +3); BICARBONATE 26.6 mEq/L (22-26)
[2018-01-05 16:15] LABS: PCO2 50 mm Hg (35-45); pH 7.24 (7.35-7.45)
[2018-01-05 16:16] LABS: BASE EXCESS -2.5 mEq/L (-3 to +3); BICARBONATE 27.5 mEq/L (22-26); CARBOXY HGB 1.6 % (0-5); COMMENTS - BLOOD GASES A+C+; DEVICE VENT; FI02 40 %; MECHANICAL RATE 16 resp/min; METHEMOGLOBIN 1.2 % (0-1.5); MODE A/C; PO2 95 mm Hg (80-100); SITE RR
[2018-01-05 16:17] LABS: PEEP 5 CM/H20; TIDAL VOLUME 400 ML; TOTAL RESP RATE 16 resp/min
[2018-01-05 18:42] LABS: COMMENTS - BLOOD GASES A+C+; DEVICE VENT; FI02 40 %; MECHANICAL RATE 18 resp/min; MODE A/C; PEEP 5 CM/H20; SITE RR; TIDAL VOLUME 400 ML; TOTAL RESP RATE 18 resp/min
[2018-01-05 18:43] LABS: CARBOXY HGB 1.7 % (0-5); METHEMOGLOBIN 1.5 % (0-1.5); PCO2 49 mm Hg (35-45); PO2 108 mm Hg (80-100); pH 7.32 (7.35-7.45)
[2018-01-05 18:44] LABS: BASE EXCESS -1.2 mEq/L (-3 to +3); BICARBONATE 25.5 mEq/L (22-26)
[2018-01-06] VITALS (23 sets, daily range): BP systolic 96–152; BP diastolic 52–77
[2018-01-06 05:34] LABS: CHLORIDE 112 MEQ/L (99-109); POTASSIUM 3.9 MEQ/L (3.7-5.4); SODIUM 143 MEQ/L (136-147)
[2018-01-06 05:40] LABS: CREATININE 1.4 MG/DL (0.6-1.3); GFR ESTIMATE (CALCULATED) 39 mL/min/; GLUCOSE 153 mg/dL (70-99); PHOSPHORUS 2.8 mg/dL (2.5-4.9); UREA NITROGEN (BUN) 60 mg/dL (9-23)
[2018-01-06 05:50] LABS: BASOPHIL (%) 0.2 % (0-1); EOSINOPHIL (%) 0.2 % (0-5); HEMATOCRIT 33.2 % (36.0-46.0); HEMOGLOBIN 10.4 G/DL (11.9-15.5); IMMATURE GRANULOCYTE (%) 1.8 % (0.0-0.7); LYMPHOCYTE (%) 1.6 % (15-42); LYMPHOCYTE COUNT 0.2 K/uL (1.0-2.8); MCH 29.7 PG (29.0-34.0); MCHC 31.3 G/DL (30.0-36.0); MCV 94.9 FL (83-99); MONOCYTE (%) 5.4 % (3-12); MONOCYTE COUNT 0.6 K/uL (0-0.8); NEUTROPHIL (%) 90.8 % (45-76); NEUTROPHIL COUNT 10.6 K/uL (1.8-6.4); PLATELET COUNT 155 K/uL (156-360); RBC DIS.WIDTH-CV 16.2 % (11.8-14.6); RBC DIS.WIDTH-SD 56.6 % (39-53); WHITE BLOOD COUNT 11.6 K/uL (4.1-10.2)
[2018-01-06 06:35] LABS: COMMENTS - BLOOD GASES C+A+; SITE RR
[2018-01-06 06:36] LABS: DEVICE 840 VENT; FI02 40 %; MECHANICAL RATE 18 resp/min; MODE AC; O2 SATURATION (CALCULATED) 98.7 % (95-99); PCO2 54 mm Hg (35-45); PEEP 5 CM/H20; PO2 111 mm Hg (80-100); TIDAL VOLUME 400 ML; TOTAL RESP RATE 18 resp/min; pH 7.28 (7.35-7.45)
[2018-01-06 06:37] LABS: BASE EXCESS -1.9 mEq/L (-3 to +3); BICARBONATE 25.4 mEq/L (22-26); CARBOXY HGB 1.5 % (0-5); METHEMOGLOBIN 1.1 % (0-1.5)
[2018-01-06 09:35] LABS: BASE EXCESS -1.9 mEq/L (-3 to +3); BICARBONATE 25.4 mEq/L (22-26); CARBOXY HGB 1.4 % (0-5); METHEMOGLOBIN 1.1 % (0-1.5); PCO2 54 mm Hg (35-45); PO2 104 mm Hg (80-100); pH 7.28 (7.35-7.45)
[2018-01-06 09:36] LABS: COMMENTS - BLOOD GASES A+C+; DEVICE VENT; FI02 40 %; MECHANICAL RATE 22 resp/min; MODE AC; O2 FLOW 50 L/MIN; PEEP 5 CM/H20; SITE RR; TIDAL VOLUME 400 ML; TOTAL RESP RATE 22 resp/min
[2018-01-07] VITALS (23 sets, daily range): BP systolic 92–172; BP diastolic 52–83
[2018-01-07 05:28] LABS: CHLORIDE 107 MEQ/L (99-109); CREATININE 1.6 MG/DL (0.6-1.3); GFR ESTIMATE (CALCULATED) 33 mL/min/; GLUCOSE 185 mg/dL (70-99); MAGNESIUM 1.8 mg/dl (1.3-2.7); POTASSIUM 3.2 MEQ/L (3.7-5.4); SODIUM 143 MEQ/L (136-147); UREA NITROGEN (BUN) 62 mg/dL (9-23)
[2018-01-07 05:33] LABS: BASE EXCESS 1.6 mEq/L (-3 to +3); BICARBONATE 26.6 mEq/L (22-26); CARBOXY HGB 1.5 % (0-5); COMMENTS - BLOOD GASES C+A+; DEVICE VENT; FI02 30 %; MECHANICAL RATE 22 resp/min; METHEMOGLOBIN 0.4 % (0-1.5); MODE AC; PCO2 43 mm Hg (35-45); PEEP 5 CM/H20; PO2 87 mm Hg (80-100); SITE RR; TIDAL VOLUME 450 ML; TOTAL RESP RATE 22 resp/min
[2018-01-07 10:41] LABS: COMMENTS - BLOOD GASES A+C+; DEVICE 840 PB; FI02 40 %; MODE SPONT; PEEP 5 CM/H20; PRES. SUPPORT 12 CM/H2O; SITE RR; TOTAL RESP RATE 18 resp/min
[2018-01-07 10:42] LABS: BASE EXCESS -1.5 mEq/L (-3 to +3); BICARBONATE 27.9 mEq/L (22-26); CARBOXY HGB 1.3 % (0-5); METHEMOGLOBIN 0.9 % (0-1.5); PCO2 73 mm Hg (35-45); PO2 98 mm Hg (80-100); pH 7.19 (7.35-7.45)
[2018-01-08] VITALS (21 sets, daily range): BP systolic 109–152; BP diastolic 56–78
[2018-01-08 05:59] LABS: CHLORIDE 106 MEQ/L (99-109); CREATININE 1.4 MG/DL (0.6-1.3); GFR ESTIMATE (CALCULATED) 39 mL/min/; GLUCOSE 171 mg/dL (70-99); PHOSPHORUS 3.5 mg/dL (2.5-4.9); POTASSIUM 3.7 MEQ/L (3.7-5.4); SODIUM 144 MEQ/L (136-147); UREA NITROGEN (BUN) 67 mg/dL (9-23)
[2018-01-08 06:01] LABS: MAGNESIUM 2.3 mg/dl (1.3-2.7)
[2018-01-08 10:44] LABS: BASOPHIL (%) 0 % (0-1); EOSINOPHIL (%) 0 % (0-5); HEMATOCRIT 31.1 % (36.0-46.0); HEMOGLOBIN 9.8 G/DL (11.9-15.5); IMMATURE GRANULOCYTE (%) 1.2 % (0.0-0.7); LYMPHOCYTE (%) 0 % (15-42); MCH 29.2 PG (29.0-34.0); MCHC 31.5 G/DL (30.0-36.0); MCV 92.6 FL (83-99); MONOCYTE (%) 6.2 % (3-12); MONOCYTE COUNT 0.5 K/uL (0-0.8); NEUTROPHIL (%) 92.6 % (45-76); NEUTROPHIL COUNT 6.7 K/uL (1.8-6.4); NRBC (%) 2.8 /100 WBC (0-0); PLATELET COUNT 153 K/uL (156-360); RBC DIS.WIDTH-CV 16.1 % (11.8-14.6); RBC DIS.WIDTH-SD 55.1 % (39-53); RED BLOOD COUNT 3.36 M/uL (3.80-5.20); WHITE BLOOD COUNT 7.3 K/uL (4.1-10.2)
[2018-01-09] VITALS (20 sets, daily range): BP systolic 113–163; BP diastolic 64–89
[2018-01-09 05:37] LABS: BASOPHIL (%) 0 % (0-1); EOSINOPHIL (%) 0.1 % (0-5); HEMATOCRIT 31.6 % (36.0-46.0); IMMATURE GRANULOCYTE (%) 0.9 % (0.0-0.7); LYMPHOCYTE (%) 3.3 % (15-42); LYMPHOCYTE COUNT 0.3 K/uL (1.0-2.8); MCH 29.3 PG (29.0-34.0); MCHC 31.6 G/DL (30.0-36.0); MCV 92.7 FL (83-99); MONOCYTE (%) 6.6 % (3-12); MONOCYTE COUNT 0.5 K/uL (0-0.8); NEUTROPHIL (%) 89.1 % (45-76); NEUTROPHIL COUNT 6.7 K/uL (1.8-6.4); PLATELET COUNT 168 K/uL (156-360); RBC DIS.WIDTH-CV 15.9 % (11.8-14.6); RBC DIS.WIDTH-SD 54.6 % (39-53); RED BLOOD COUNT 3.41 M/uL (3.80-5.20); WHITE BLOOD COUNT 7.6 K/uL (4.1-10.2)
[2018-01-09 05:54] LABS: CHLORIDE 109 MEQ/L (99-109); CREATININE 1.2 MG/DL (0.6-1.3); GFR ESTIMATE (CALCULATED) 46 mL/min/; GLUCOSE 137 mg/dL (70-99); MAGNESIUM 2.2 mg/dl (1.3-2.7); PHOSPHORUS 3.6 mg/dL (2.5-4.9); POTASSIUM 3.2 MEQ/L (3.7-5.4); SODIUM 143 MEQ/L (136-147); UREA NITROGEN (BUN) 66 mg/dL (9-23)
[2018-01-10] VITALS (19 sets, daily range): BP systolic 91–166; BP diastolic 56–79
[2018-01-10 06:07] LABS: BASOPHIL (%) 0.1 % (0-1); EOSINOPHIL (%) 0 % (0-5); HEMOGLOBIN 9.8 G/DL (11.9-15.5); IMMATURE GRANULOCYTE (%) 1.1 % (0.0-0.7); LYMPHOCYTE (%) 2.1 % (15-42); LYMPHOCYTE COUNT 0.2 K/uL (1.0-2.8); MCH 28.9 PG (29.0-34.0); MCHC 31.6 G/DL (30.0-36.0); MCV 91.4 FL (83-99); MONOCYTE (%) 5.2 % (3-12); MONOCYTE COUNT 0.4 K/uL (0-0.8); NEUTROPHIL (%) 91.5 % (45-76); NEUTROPHIL COUNT 6.9 K/uL (1.8-6.4); PLATELET COUNT 172 K/uL (156-360); RBC DIS.WIDTH-SD 54.4 % (39-53); RED BLOOD COUNT 3.39 M/uL (3.80-5.20); WHITE BLOOD COUNT 7.5 K/uL (4.1-10.2)
[2018-01-10 06:36] LABS: CHLORIDE 108 MEQ/L (99-109); CREATININE 1.3 MG/DL (0.6-1.3); GFR ESTIMATE (CALCULATED) 42 mL/min/; GLUCOSE 133 mg/dL (70-99); POTASSIUM 3.2 MEQ/L (3.7-5.4); SODIUM 144 MEQ/L (136-147); UREA NITROGEN (BUN) 72 mg/dL (9-23)
[2018-01-10 06:39] LABS: PHOSPHORUS 4.9 mg/dL (2.5-4.9)
[2018-01-10 09:40] LABS: BICARBONATE 27.6 mEq/L (22-26); CARBOXY HGB 1.2 % (0-5); PCO2 83 mm Hg (35-45); PO2 221 mm Hg (80-100)
[2018-01-10 09:41] LABS: BASE EXCESS -3 mEq/L (-3 to +3); COMMENTS - BLOOD GASES A+C+; FI02 50 %; O2 FLOW 12 L/MIN; SITE RR; pH 7.13 (7.35-7.45)
[2018-01-10 10:46] LABS: PCO2 62 mm Hg (35-45); PO2 95 mm Hg (80-100)
[2018-01-10 10:47] LABS: BASE EXCESS -2.3 mEq/L (-3 to +3); CARBOXY HGB 1.7 % (0-5); COMMENTS - BLOOD GASES A+C+; CONTINUOUS POS AIRWAY PRESSURE 5 cm H2O; DEVICE 840 MASK; FI02 30 %; METHEMOGLOBIN 0.8 % (0-1.5); MODE CPAP; PRES. SUPPORT 15 CM/H2O; SITE RR; TOTAL RESP RATE 21 resp/min
[2018-01-10 10:48] LABS: pH 7.23 (7.35-7.45)
[2018-01-10 15:57] LABS: COMMENTS - BLOOD GASES A+C+; DEVICE 840 MASK; FI02 30 %; SITE RR
[2018-01-10 15:58] LABS: BASE EXCESS 0.1 mEq/L (-3 to +3); BICARBONATE 26.8 mEq/L (22-26); CARBOXY HGB 1.8 % (0-5); CONTINUOUS POS AIRWAY PRESSURE 5 cm H2O; HEMATOCRIT 98.6 % (36-46); METHEMOGLOBIN 0.6 % (0-1.5); MODE SPONT; PCO2 52 mm Hg (35-45); PO2 96 mm Hg (80-100); PRES. SUPPORT 15 CM/H2O; TOTAL RESP RATE 21 resp/min; pH 7.32 (7.35-7.45)
[2018-01-11] VITALS (23 sets, daily range): BP systolic 90–150; BP diastolic 38–84
[2018-01-11 05:38] LABS: BASOPHIL (%) 0.1 % (0-1); EOSINOPHIL (%) 0.1 % (0-5); HEMATOCRIT 34.7 % (36.0-46.0); HEMOGLOBIN 10.6 G/DL (11.9-15.5); LYMPHOCYTE (%) 3.2 % (15-42); LYMPHOCYTE COUNT 0.3 K/uL (1.0-2.8); MCH 29.3 PG (29.0-34.0); MCHC 30.5 G/DL (30.0-36.0); MONOCYTE (%) 6.1 % (3-12); MONOCYTE COUNT 0.6 K/uL (0-0.8); NEUTROPHIL (%) 89.5 % (45-76); NEUTROPHIL COUNT 8.4 K/uL (1.8-6.4); PLATELET COUNT 187 K/uL (156-360); RBC DIS.WIDTH-CV 16.4 % (11.8-14.6); RBC DIS.WIDTH-SD 57.8 % (39-53); RED BLOOD COUNT 3.62 M/uL (3.80-5.20); WHITE BLOOD COUNT 9.4 K/uL (4.1-10.2)
[2018-01-11 05:45] LABS: MCV 95.9 FL (83-99)
[2018-01-11 06:14] LABS: ALKALINE PHOSPHATASE 52 IU/L (3-129); ALT (GPT) 20 IU/L (3-49); AST (GOT) 16 IU/L (2-34); CHLORIDE 113 MEQ/L (99-109); CREATININE 1.3 MG/DL (0.6-1.3); DIRECT BILIRUBIN 0.1 mg/dL (0.0-0.3); GFR ESTIMATE (CALCULATED) 42 mL/min/; GLUCOSE 128 mg/dL (70-99); MAGNESIUM 2.1 mg/dl (1.3-2.7); PHOSPHORUS 4.9 mg/dL (2.5-4.9); PREALBUMIN 28.2 mg/dL (10-40); SODIUM 149 MEQ/L (136-147); TRIGLYCERIDES 59 MG/DL (Normal: <150); UREA NITROGEN (BUN) 76 mg/dL (9-23)
[2018-01-11 06:15] LABS: POTASSIUM 4.2 MEQ/L (3.7-5.4); TOTAL BILIRUBIN 0.3 MG/DL (0.0-1.0); TOTAL PROTEIN 4.7 G/DL (6.4-8.3)
[2018-01-12] VITALS (24 sets, daily range): BP systolic 106–138; BP diastolic 52–68
[2018-01-12 05:31] LABS: HEMATOCRIT 31.8 % (36.0-46.0); HEMOGLOBIN 9.4 G/DL (11.9-15.5); MCH 28.7 PG (29.0-34.0); MCHC 29.6 G/DL (30.0-36.0); MCV 97.2 FL (83-99); PLATELET COUNT 159 K/uL (156-360); RBC DIS.WIDTH-CV 16.2 % (11.8-14.6); RBC DIS.WIDTH-SD 58.4 % (39-53); RED BLOOD COUNT 3.27 M/uL (3.80-5.20); WHITE BLOOD COUNT 16.3 K/uL (4.1-10.2)
[2018-01-12 05:56] LABS: CHLORIDE 112 MEQ/L (99-109); CREATININE 1.4 MG/DL (0.6-1.3); GFR ESTIMATE (CALCULATED) 39 mL/min/; GLUCOSE 171 mg/dL (70-99); PHOSPHORUS 4.3 mg/dL (2.5-4.9); POTASSIUM 4.1 MEQ/L (3.7-5.4); SODIUM 148 MEQ/L (136-147); UREA NITROGEN (BUN) 87 mg/dL (9-23)
[2018-01-12 12:14] LABS: 24 HR VOLUME 3200 MLS; URINE UREA NITROGEN 16992 MG/24 HR
[2018-01-13] VITALS (25 sets, daily range): BP systolic 102–147; BP diastolic 55–75
[2018-01-13 05:25] LABS: HEMOGLOBIN 9.1 G/DL (11.9-15.5); MCH 29.4 PG (29.0-34.0); MCHC 30.3 G/DL (30.0-36.0); MCV 96.8 FL (83-99); PLATELET COUNT 143 K/uL (156-360); RBC DIS.WIDTH-CV 16.4 % (11.8-14.6); RBC DIS.WIDTH-SD 58.3 % (39-53); WHITE BLOOD COUNT 9.8 K/uL (4.1-10.2)
[2018-01-13 05:50] LABS: CHLORIDE 110 MEQ/L (99-109); CREATININE 1.6 MG/DL (0.6-1.3); GFR ESTIMATE (CALCULATED) 33 mL/min/; GLUCOSE 131 mg/dL (70-99); PHOSPHORUS 5.1 mg/dL (2.5-4.9); SODIUM 149 MEQ/L (136-147); UREA NITROGEN (BUN) 99 mg/dL (9-23)
[2018-01-13 09:58] LABS: INTER. NORMALIZED RATIO 1.1
[2018-01-13 10:01] LABS: PTT 23.9 SEC (25-37)
[2018-01-14] VITALS (24 sets, daily range): BP systolic 127–161; BP diastolic 65–87
[2018-01-14 07:27] LABS: BASOPHIL (%) 0.1 % (0-1); EOSINOPHIL (%) 0.1 % (0-5); HEMATOCRIT 29.9 % (36.0-46.0); IMMATURE GRANULOCYTE (%) 0.7 % (0.0-0.7); LYMPHOCYTE (%) 2.2 % (15-42); LYMPHOCYTE COUNT 0.2 K/uL (1.0-2.8); MCHC 30.1 G/DL (30.0-36.0); MCV 96.5 FL (83-99); MONOCYTE COUNT 0.3 K/uL (0-0.8); NEUTROPHIL (%) 93.9 % (45-76); NEUTROPHIL COUNT 8.3 K/uL (1.8-6.4); PLATELET COUNT 159 K/uL (156-360); RBC DIS.WIDTH-CV 16.4 % (11.8-14.6); RBC DIS.WIDTH-SD 57.9 % (39-53); WHITE BLOOD COUNT 8.9 K/uL (4.1-10.2)
[2018-01-14 07:50] LABS: CHLORIDE 114 MEQ/L (99-109); CREATININE 1.6 MG/DL (0.6-1.3); GFR ESTIMATE (CALCULATED) 33 mL/min/; GLUCOSE 163 mg/dL (70-99); MAGNESIUM 2.1 mg/dl (1.3-2.7); PHOSPHORUS 3.9 mg/dL (2.5-4.9); POTASSIUM 3.9 MEQ/L (3.7-5.4); SODIUM 152 MEQ/L (136-147)
[2018-01-14 07:55] LABS: UREA NITROGEN (BUN) 118 mg/dL (9-23)
[2018-01-14 16:31] LABS: CHLORIDE 113 MEQ/L (99-109); CREATININE 1.4 MG/DL (0.6-1.3); GFR ESTIMATE (CALCULATED) 39 mL/min/; GLUCOSE 178 mg/dL (70-99); POTASSIUM 3.6 MEQ/L (3.7-5.4); SODIUM 152 MEQ/L (136-147)
[2018-01-14 16:33] LABS: UREA NITROGEN (BUN) 112 mg/dL (9-23)
[2018-01-15] VITALS (28 sets, daily range): BP systolic 75–156; BP diastolic 32–86
[2018-01-15 07:45] LABS: HEMATOCRIT 30.2 % (36.0-46.0); HEMOGLOBIN 8.8 G/DL (11.9-15.5); MCHC 29.1 G/DL (30.0-36.0); MCV 99.7 FL (83-99); PLATELET COUNT 163 K/uL (156-360); RBC DIS.WIDTH-CV 16.5 % (11.8-14.6); RBC DIS.WIDTH-SD 60.9 % (39-53); RED BLOOD COUNT 3.03 M/uL (3.80-5.20); WHITE BLOOD COUNT 10.7 K/uL (4.1-10.2)
[2018-01-15 09:26] LABS: BICARBONATE 28.5 mEq/L (22-26); CARBOXY HGB 2.6 % (0-5); COMMENTS - BLOOD GASES A+C+; DEVICE NC; METHEMOGLOBIN 0.8 % (0-1.5); O2 FLOW 4 L/MIN; PCO2 103 mm Hg (35-45); PO2 126 mm Hg (80-100); SITE RR; TOTAL RESP RATE 22 resp/min
[2018-01-15 09:27] LABS: pH 7.05 (7.35-7.45)
[2018-01-15 10:02] LABS: CHLORIDE 112 MEQ/L (99-109); CREATININE 1.3 MG/DL (0.6-1.3); GFR ESTIMATE (CALCULATED) 42 mL/min/; GLUCOSE 172 mg/dL (70-99); MAGNESIUM 1.9 mg/dl (1.3-2.7); PHOSPHORUS 3.5 mg/dL (2.5-4.9); SODIUM 147 MEQ/L (136-147); UREA NITROGEN (BUN) 98 mg/dL (9-23)
[2018-01-15 10:07] LABS: POTASSIUM 4.7 MEQ/L (3.7-5.4)
[2018-01-15 20:32] LABS: COMMENTS - BLOOD GASES A+C+; DEVICE VENT; FI02 40 %; MODE BIPAP; PEEP 5 CM/H20; PRES. SUPPORT 10 CM/H2O; SITE RR; TIDAL VOLUME 447 ML; TOTAL RESP RATE 24 resp/min
[2018-01-15 20:33] LABS: BICARBONATE 25.6 mEq/L (22-26); CARBOXY HGB 1.5 % (0-5); METHEMOGLOBIN 0.6 % (0-1.5); PCO2 97 mm Hg (35-45); PO2 72 mm Hg (80-100); pH 7.03 (7.35-7.45)
[2018-01-15 20:34] LABS: BASE EXCESS -5.3 mEq/L (-3 to +3)
[2018-01-15 21:08] LABS: CHLORIDE 109 MEQ/L (99-109); CREATININE 1.4 MG/DL (0.6-1.3); GFR ESTIMATE (CALCULATED) 39 mL/min/; GLUCOSE 136 mg/dL (70-99); POTASSIUM 5.6 MEQ/L (3.7-5.4); SODIUM 140 MEQ/L (136-147); UREA NITROGEN (BUN) 99 mg/dL (9-23)
[2018-01-15 22:37] LABS: COMMENTS - BLOOD GASES A+C+; FI02 70 %; MECHANICAL RATE 16 resp/min; MODE AC; PEEP 5 CM/H20; SITE RR; TIDAL VOLUME 450 ML; TOTAL RESP RATE 16 resp/min
[2018-01-15 22:38] LABS: BASE EXCESS -5.8 mEq/L (-3 to +3); BICARBONATE 23.9 mEq/L (22-26); CARBOXY HGB 1.1 % (0-5); METHEMOGLOBIN 1.1 % (0-1.5); PCO2 77 mm Hg (35-45); PO2 242 mm Hg (80-100)
[2018-01-15 22:53] LABS: CHLORIDE 111 mEq/L (99-109); POTASSIUM 5.9 mEq/L (3.7-5.4); SODIUM 140 mEq/L (136-147)
[2018-01-15 22:54] LABS: GLUCOSE 158 mg/dL (70-99)
[2018-01-15 22:58] LABS: CREATININE 1.5 mg/dL (0.6-1.3); GFR ESTIMATE (CALCULATED) 36 mL/min/
[2018-01-15 23:10] LABS: UREA NITROGEN (BUN) 110 mg/dL (9-23)
[2018-01-16] VITALS (54 sets, daily range): BP systolic 58–147; BP diastolic 42–514
[2018-01-16 00:01] LABS: BASOPHIL (%) 0.1 % (0-1); EOSINOPHIL (%) 0.4 % (0-5); EOSINOPHIL COUNT 0.1 K/uL (0-0.3); HEMATOCRIT 23.9 % (36.0-46.0); IMMATURE GRANULOCYTE (%) 0.9 % (0.0-0.7); LYMPHOCYTE (%) 2.5 % (15-42); LYMPHOCYTE COUNT 0.4 K/uL (1.0-2.8); MCHC 29.3 G/DL (30.0-36.0); MCV 102.6 FL (83-99); MONOCYTE (%) 6.6 % (3-12); MONOCYTE COUNT 0.9 K/uL (0-0.8); NEUTROPHIL (%) 89.5 % (45-76); NEUTROPHIL COUNT 12.7 K/uL (1.8-6.4); NRBC (%) 0.1 /100 WBC (0-0); PLATELET COUNT 195 K/uL (156-360); RBC DIS.WIDTH-CV 16.3 % (11.8-14.6); RBC DIS.WIDTH-SD 61.6 % (39-53); WHITE BLOOD COUNT 14.1 K/uL (4.1-10.2)
[2018-01-16 00:02] LABS: RED BLOOD COUNT 2.33 M/uL (3.80-5.20)
[2018-01-16 00:28] LABS: INTER. NORMALIZED RATIO 1.1
[2018-01-16 00:47] LABS: PTT 50.1 SEC (25-37)
[2018-01-16 01:04] LABS: PCO2 63 mm Hg (35-45); PO2 76 mm Hg (80-100)
[2018-01-16 01:05] LABS: BASE EXCESS -6.5 mEq/L (-3 to +3); BICARBONATE 21.9 mEq/L (22-26); CARBOXY HGB 1.2 % (0-5); COMMENTS - BLOOD GASES C+A+; DEVICE VENTILATOR; FI02 40 %; MECHANICAL RATE 20 resp/min; MODE AC; PEEP 5 CM/H20; SITE RR; TIDAL VOLUME 450 ML; TOTAL RESP RATE 21 resp/min; pH 7.15 (7.35-7.45)
[2018-01-16 03:19] LABS: CARBOXY HGB 1.4 % (0-5); PCO2 50 mm Hg (35-45); PO2 125 mm Hg (80-100)
[2018-01-16 03:20] LABS: BASE EXCESS -6.3 mEq/L (-3 to +3); BICARBONATE 20.9 mEq/L (22-26); COMMENTS - BLOOD GASES C+A+; DEVICE VENTILATOR; FI02 40 %; MECHANICAL RATE 24 resp/min; MODE AC; PEEP 5 CM/H20; SITE RR; TIDAL VOLUME 500 ML; TOTAL RESP RATE 24 resp/min; pH 7.23 (7.35-7.45)
[2018-01-16 05:42] LABS: BASOPHIL (%) 0.1 % (0-1); EOSINOPHIL (%) 0 % (0-5); HEMOGLOBIN 7.1 G/DL (11.9-15.5); IMMATURE GRANULOCYTE (%) 0.8 % (0.0-0.7); LYMPHOCYTE (%) 2.1 % (15-42); LYMPHOCYTE COUNT 0.2 K/uL (1.0-2.8); MCH 28.6 PG (29.0-34.0); MCHC 29.6 G/DL (30.0-36.0); MCV 96.8 FL (83-99); MONOCYTE (%) 3.2 % (3-12); MONOCYTE COUNT 0.4 K/uL (0-0.8); NEUTROPHIL (%) 93.8 % (45-76); NEUTROPHIL COUNT 10.1 K/uL (1.8-6.4); PLATELET COUNT 144 K/uL (156-360); RBC DIS.WIDTH-CV 17.2 % (11.8-14.6); RBC DIS.WIDTH-SD 60.6 % (39-53); RED BLOOD COUNT 2.48 M/uL (3.80-5.20); WHITE BLOOD COUNT 10.8 K/uL (4.1-10.2)
[2018-01-16 06:34] LABS: CHLORIDE 109 MEQ/L (99-109); CREATININE 1.5 MG/DL (0.6-1.3); GFR ESTIMATE (CALCULATED) 36 mL/min/; GLUCOSE 132 mg/dL (70-99); POTASSIUM 5.8 MEQ/L (3.7-5.4); SODIUM 137 MEQ/L (136-147)
[2018-01-16 06:35] LABS: MAGNESIUM 1.5 mg/dl (1.3-2.7); PHOSPHORUS 2.1 mg/dL (2.5-4.9); UREA NITROGEN (BUN) 101 mg/dL (9-23)
[2018-01-16 10:41] LABS: PTT 26.9 SEC (25-37)
[2018-01-16 13:11] LABS: HEMATOCRIT 27.6 % (36.0-46.0); HEMOGLOBIN 8.5 G/DL (11.9-15.5); MCV 95.2 FL (83-99)
[2018-01-16 18:54] LABS: HEMATOCRIT 29.8 % (36.0-46.0); HEMOGLOBIN 9.3 G/DL (11.9-15.5); MCV 93.1 FL (83-99)
[2018-01-16 19:11] LABS: CHLORIDE 108 MEQ/L (99-109); POTASSIUM 5.9 MEQ/L (3.7-5.4); SODIUM 136 MEQ/L (136-147)
[2018-01-16 19:16] LABS: CREATININE 1.7 MG/DL (0.6-1.3); GFR ESTIMATE (CALCULATED) 31 mL/min/
[2018-01-16 19:17] LABS: GLUCOSE 96 mg/dL (70-99); UREA NITROGEN (BUN) 105 mg/dL (9-23)
[2018-01-17] VITALS (21 sets, daily range): BP systolic 112–152; BP diastolic 45–67
[2018-01-17 06:42] LABS: HEMATOCRIT 27.2 % (36.0-46.0); HEMOGLOBIN 8.6 G/DL (11.9-15.5); MCH 29.7 PG (29.0-34.0); MCHC 31.6 G/DL (30.0-36.0); MCV 93.8 FL (83-99); PLATELET COUNT 108 K/uL (156-360); RBC DIS.WIDTH-CV 16.8 % (11.8-14.6); RBC DIS.WIDTH-SD 58.4 % (39-53); WHITE BLOOD COUNT 8.6 K/uL (4.1-10.2)
[2018-01-17 06:52] LABS: CHLORIDE 108 MEQ/L (99-109); CREATININE 1.9 MG/DL (0.6-1.3); GFR ESTIMATE (CALCULATED) 27 mL/min/; GLUCOSE 115 mg/dL (70-99); POTASSIUM 5.7 MEQ/L (3.7-5.4); SODIUM 136 MEQ/L (136-147)
[2018-01-17 07:04] LABS: MAGNESIUM 2.3 mg/dl (1.3-2.7); PHOSPHORUS 3.7 mg/dL (2.5-4.9); UREA NITROGEN (BUN) 112 mg/dL (9-23)
[2018-01-17 19:20] LABS: CHLORIDE 107 MEQ/L (99-109); CREATININE 2.2 MG/DL (0.6-1.3); GFR ESTIMATE (CALCULATED) 23 mL/min/; GLUCOSE 122 mg/dL (70-99); POTASSIUM 5.4 MEQ/L (3.7-5.4); SODIUM 136 MEQ/L (136-147)
[2018-01-17 19:22] LABS: UREA NITROGEN (BUN) 129 mg/dL (9-23)
[2018-01-18] VITALS (25 sets, daily range): BP systolic 99–144; BP diastolic 38–77
[2018-01-18 06:59] LABS: BASOPHIL (%) 0.1 % (0-1); EOSINOPHIL (%) 1.7 % (0-5); EOSINOPHIL COUNT 0.1 K/uL (0-0.3); HEMATOCRIT 28.2 % (36.0-46.0); IMMATURE GRANULOCYTE (%) 0.7 % (0.0-0.7); LYMPHOCYTE (%) 2.9 % (15-42); LYMPHOCYTE COUNT 0.2 K/uL (1.0-2.8); MCH 29.4 PG (29.0-34.0); MCHC 31.9 G/DL (30.0-36.0); MCV 92.2 FL (83-99); MONOCYTE (%) 5.4 % (3-12); MONOCYTE COUNT 0.4 K/uL (0-0.8); NEUTROPHIL (%) 89.2 % (45-76); NEUTROPHIL COUNT 6.4 K/uL (1.8-6.4); PLATELET COUNT 118 K/uL (156-360); RBC DIS.WIDTH-SD 57.6 % (39-53); RED BLOOD COUNT 3.06 M/uL (3.80-5.20); WHITE BLOOD COUNT 7.2 K/uL (4.1-10.2)
[2018-01-18 07:38] LABS: ALBUMIN 2.7 G/DL (3.2-4.8); ALKALINE PHOSPHATASE 51 IU/L (3-129); ALT (GPT) 18 IU/L (3-49); AST (GOT) 15 IU/L (2-34); CHLORIDE 106 MEQ/L (99-109); CREATININE 2.5 MG/DL (0.6-1.3); DIRECT BILIRUBIN 0.1 mg/dL (0.0-0.3); GFR ESTIMATE (CALCULATED) 20 mL/min/; GLUCOSE 122 mg/dL (70-99); PHOSPHORUS 4.5 mg/dL (2.5-4.9); POTASSIUM 4.8 MEQ/L (3.7-5.4); PREALBUMIN 27.5 mg/dL (10-40); SODIUM 136 MEQ/L (136-147); TOTAL BILIRUBIN 0.3 MG/DL (0.0-1.0); TOTAL PROTEIN 4.5 G/DL (6.4-8.3); TRIGLYCERIDES 130 MG/DL (Normal: <150)
[2018-01-18 07:41] LABS: MAGNESIUM 2.8 mg/dl (1.3-2.7); UREA NITROGEN (BUN) 142 mg/dL (9-23)
[2018-01-18 07:43] LABS: UREA NITROGEN (BUN) 142 mg/dL (9-23)
[2018-01-18 19:02] LABS: MAGNESIUM 2.8 mg/dl (1.3-2.7); PHOSPHORUS 4.9 mg/dL (2.5-4.9)
[2018-01-19] VITALS (25 sets, daily range): BP systolic 112–179; BP diastolic 47–80
[2018-01-19 00:38] LABS: MAGNESIUM 2.7 mg/dL (1.3-2.7)
[2018-01-19 00:38] LABS: CHLORIDE 109 mEq/L (99-109); POTASSIUM 4.2 mEq/L (3.7-5.4); SODIUM 139 mEq/L (136-147)
[2018-01-19 00:40] LABS: GLUCOSE 149 mg/dL (70-99)
[2018-01-19 00:43] LABS: PHOSPHORUS 4.4 mg/dL (2.5-4.9)
[2018-01-19 00:44] LABS: CREATININE 2.7 mg/dL (0.6-1.3); GFR ESTIMATE (CALCULATED) 18 mL/min/
[2018-01-19 01:10] LABS: UREA NITROGEN (BUN) 146 mg/dL (9-23)
[2018-01-19 05:24] LABS: BASOPHIL (%) 0 % (0-1); EOSINOPHIL (%) 1.4 % (0-5); EOSINOPHIL COUNT 0.1 K/uL (0-0.3); HEMATOCRIT 25.9 % (36.0-46.0); HEMOGLOBIN 8.2 G/DL (11.9-15.5); IMMATURE GRANULOCYTE (%) 0.6 % (0.0-0.7); LYMPHOCYTE (%) 2.6 % (15-42); LYMPHOCYTE COUNT 0.1 K/uL (1.0-2.8); MCH 29.1 PG (29.0-34.0); MCHC 31.7 G/DL (30.0-36.0); MCV 91.8 FL (83-99); MONOCYTE (%) 5.1 % (3-12); MONOCYTE COUNT 0.3 K/uL (0-0.8); NEUTROPHIL (%) 90.3 % (45-76); NEUTROPHIL COUNT 4.6 K/uL (1.8-6.4); PLATELET COUNT 122 K/uL (156-360); RBC DIS.WIDTH-CV 16.4 % (11.8-14.6); RBC DIS.WIDTH-SD 55.8 % (39-53); RED BLOOD COUNT 2.82 M/uL (3.80-5.20); WHITE BLOOD COUNT 5.1 K/uL (4.1-10.2)
[2018-01-19 05:43] LABS: MAGNESIUM 2.6 mg/dl (1.3-2.7); PHOSPHORUS 4.5 mg/dL (2.5-4.9)
[2018-01-19 06:11] LABS: ALBUMIN 3.3 G/DL (3.2-4.8); ALKALINE PHOSPHATASE 55 IU/L (3-129); ALT (GPT) 18 IU/L (3-49); AST (GOT) 14 IU/L (2-34); CHLORIDE 105 MEQ/L (99-109); CREATININE 2.7 MG/DL (0.6-1.3); GFR ESTIMATE (CALCULATED) 18 mL/min/; GLUCOSE 154 mg/dL (70-99); SODIUM 139 MEQ/L (136-147)
[2018-01-19 06:12] LABS: TOTAL BILIRUBIN 0.5 MG/DL (0.0-1.0)
[2018-01-19 06:55] LABS: UREA NITROGEN (BUN) 161 mg/dL (9-23)
[2018-01-19 08:22] LABS: STOOL OCCULT BLD 1ST SPECIMEN POSITIVE
[2018-01-19 09:09] LABS: UR CREATININE CONCENTRATION 16.7 MG/DL
[2018-01-19 09:42] LABS: APPEARANCE CLEAR ((CLEAR)); BILIRUBIN NEGATIVE; BLOOD MODERATE; COLOR STRAW ((YELLOW)); GLUCOSE (STRIP) NEGATIVE; KETONES NEGATIVE; LEUKOCYTES NEGATIVE; NITRITE NEGATIVE; PROTEIN (STRIP) NEGATIVE; SPECIFIC GRAVITY 1.008 (1.000-1.030); UROBILINOGEN 0.2 MG/DL (0.2-1.0)
[2018-01-19 10:00] LABS: BACTERIA RARE /HPF; EPITHELIAL CELLS NONE SEEN /HPF; HYALINE CASTS 0-5 /LPF; MUCUS TRACE /LPF; WHITE BLOOD CELLS 0-5 /HPF (0-5)
[2018-01-19 10:21] LABS: 24 HR VOLUME 3000 MLS; URINE UREA NITROGEN 10320 MG/24 HR
[2018-01-19 10:48] LABS: EOSINOPHILS,URINE NONE SEEN
[2018-01-19 17:16] LABS: CHLORIDE 103 MEQ/L (99-109); CREATININE 2.8 MG/DL (0.6-1.3); GFR ESTIMATE (CALCULATED) 17 mL/min/; GLUCOSE 141 mg/dL (70-99); MAGNESIUM 2.6 mg/dl (1.3-2.7); PHOSPHORUS 4.8 mg/dL (2.5-4.9); POTASSIUM 3.6 MEQ/L (3.7-5.4); SODIUM 139 MEQ/L (136-147)
[2018-01-19 17:34] LABS: UREA NITROGEN (BUN) 167 mg/dL (9-23)
[2018-01-20] VITALS (24 sets, daily range): BP systolic 118–161; BP diastolic 57–89
[2018-01-20 00:47] LABS: CHLORIDE 105 mEq/L (99-109); POTASSIUM 3.8 mEq/L (3.7-5.4); SODIUM 139 mEq/L (136-147)
[2018-01-20 00:49] LABS: GLUCOSE 156 mg/dL (70-99)
[2018-01-20 00:53] LABS: GFR ESTIMATE (CALCULATED) 16 mL/min/
[2018-01-20 01:02] LABS: UREA NITROGEN (BUN) 163 mg/dL (9-23)
[2018-01-20 01:04] LABS: MAGNESIUM 2.8 mg/dL (1.3-2.7)
[2018-01-20 01:08] LABS: PHOSPHORUS 4.3 mg/dL (2.5-4.9)
[2018-01-20 07:54] LABS: BASOPHIL (%) 0.2 % (0-1); EOSINOPHIL (%) 1.5 % (0-5); EOSINOPHIL COUNT 0.1 K/uL (0-0.3); HEMATOCRIT 25.7 % (36.0-46.0); HEMOGLOBIN 8.4 G/DL (11.9-15.5); IMMATURE GRANULOCYTE (%) 1.1 % (0.0-0.7); LYMPHOCYTE COUNT 0.2 K/uL (1.0-2.8); MCH 29.4 PG (29.0-34.0); MCHC 32.7 G/DL (30.0-36.0); MCV 89.9 FL (83-99); MONOCYTE (%) 8.9 % (3-12); MONOCYTE COUNT 0.4 K/uL (0-0.8); NEUTROPHIL (%) 84.3 % (45-76); PLATELET COUNT 136 K/uL (156-360); RBC DIS.WIDTH-CV 16.4 % (11.8-14.6); RED BLOOD COUNT 2.86 M/uL (3.80-5.20); WHITE BLOOD COUNT 4.7 K/uL (4.1-10.2)
[2018-01-20 08:17] LABS: MAGNESIUM 2.5 mg/dl (1.3-2.7); PHOSPHORUS 4.3 mg/dL (2.5-4.9)
[2018-01-20 08:33] LABS: CHLORIDE 103 MEQ/L (99-109); GFR ESTIMATE (CALCULATED) 16 mL/min/; GLUCOSE 146 mg/dL (70-99); POTASSIUM 3.6 MEQ/L (3.7-5.4); SODIUM 141 MEQ/L (136-147); UREA NITROGEN (BUN) 178 mg/dL (9-23)
[2018-01-20 16:36] LABS: MAGNESIUM 2.4 mg/dl (1.3-2.7); PHOSPHORUS 4.4 mg/dL (2.5-4.9)
[2018-01-20 16:55] LABS: CHLORIDE 103 MEQ/L (99-109); CREATININE 3.1 MG/DL (0.6-1.3); GFR ESTIMATE (CALCULATED) 15 mL/min/; GLUCOSE 170 mg/dL (70-99); POTASSIUM 3.9 MEQ/L (3.7-5.4); SODIUM 141 MEQ/L (136-147)
[2018-01-20 16:57] LABS: UREA NITROGEN (BUN) 180 mg/dL (9-23)
[2018-01-21] VITALS (23 sets, daily range): BP systolic 97–168; BP diastolic 48–101
[2018-01-21 01:19] LABS: CHLORIDE 102 mEq/L (99-109); POTASSIUM 3.7 mEq/L (3.7-5.4); SODIUM 140 mEq/L (136-147)
[2018-01-21 01:20] LABS: GLUCOSE 146 mg/dL (70-99)
[2018-01-21 01:24] LABS: CREATININE 3.1 mg/dL (0.6-1.3); GFR ESTIMATE (CALCULATED) 15 mL/min/
[2018-01-21 01:32] LABS: UREA NITROGEN (BUN) 174 mg/dL (9-23)
[2018-01-21 05:44] LABS: BASOPHIL (%) 0 % (0-1); EOSINOPHIL (%) 0.6 % (0-5); HEMATOCRIT 26.8 % (36.0-46.0); HEMOGLOBIN 8.6 G/DL (11.9-15.5); IMMATURE GRANULOCYTE (%) 0.7 % (0.0-0.7); LYMPHOCYTE COUNT 0.1 K/uL (1.0-2.8); MCHC 32.1 G/DL (30.0-36.0); MCV 90.2 FL (83-99); MONOCYTE (%) 6.1 % (3-12); MONOCYTE COUNT 0.3 K/uL (0-0.8); NEUTROPHIL (%) 90.6 % (45-76); NEUTROPHIL COUNT 4.9 K/uL (1.8-6.4); PLATELET COUNT 152 K/uL (156-360); RBC DIS.WIDTH-CV 16.2 % (11.8-14.6); RBC DIS.WIDTH-SD 53.7 % (39-53); RED BLOOD COUNT 2.97 M/uL (3.80-5.20); WHITE BLOOD COUNT 5.4 K/uL (4.1-10.2)
[2018-01-21 06:21] LABS: ALBUMIN 3.4 G/DL (3.2-4.8); ALKALINE PHOSPHATASE 79 IU/L (3-129); ALT (GPT) 22 IU/L (3-49); AST (GOT) 14 IU/L (2-34); CHLORIDE 100 MEQ/L (99-109); CREATININE 3.2 MG/DL (0.6-1.3); GFR ESTIMATE (CALCULATED) 15 mL/min/; GLUCOSE 184 mg/dL (70-99); MAGNESIUM 2.4 mg/dl (1.3-2.7); PHOSPHORUS 4.7 mg/dL (2.5-4.9); POTASSIUM 3.8 MEQ/L (3.7-5.4); SODIUM 141 MEQ/L (136-147); TOTAL BILIRUBIN 0.4 MG/DL (0.0-1.0); TOTAL PROTEIN 5.3 G/DL (6.4-8.3)
[2018-01-21 06:47] LABS: UREA NITROGEN (BUN) 180 mg/dL (9-23)
[2018-01-21 10:07] LABS: CHLORIDE 99 MEQ/L (99-109); CREATININE 3.2 MG/DL (0.6-1.3); GFR ESTIMATE (CALCULATED) 15 mL/min/; GLUCOSE 156 mg/dL (70-99); POTASSIUM 3.7 MEQ/L (3.7-5.4); SODIUM 139 MEQ/L (136-147)
[2018-01-21 10:10] LABS: UREA NITROGEN (BUN) 175 mg/dL (9-23)
[2018-01-21 12:45] LABS: COMMENTS - BLOOD GASES C+; SITE RR
[2018-01-21 12:46] LABS: DEVICE VENT; FI02 30 %; MODE TC; PEEP 5 CM/H20
[2018-01-21 12:48] LABS: PCO2 54 mm Hg (35-45); PO2 90 mm Hg (80-100); pH 7.28 (7.35-7.45)
[2018-01-21 12:49] LABS: BASE EXCESS -1.7 mEq/L (-3 to +3); BICARBONATE 25.4 mEq/L (22-26); CARBOXY HGB 2.1 % (0-5); METHEMOGLOBIN 0.3 % (0-1.5); O2 SATURATION (CALCULATED) 98.8 % (95-99)
[2018-01-21 16:30] LABS: CHLORIDE 99 MEQ/L (99-109); POTASSIUM 3.7 MEQ/L (3.7-5.4); SODIUM 141 MEQ/L (136-147)
[2018-01-21 16:47] LABS: CREATININE 3.1 MG/DL (0.6-1.3); GFR ESTIMATE (CALCULATED) 15 mL/min/; GLUCOSE 158 mg/dL (70-99)
[2018-01-21 17:06] LABS: UREA NITROGEN (BUN) 183 mg/dL (9-23)
[2018-01-22] VITALS (24 sets, daily range): BP systolic 99–163; BP diastolic 55–112
[2018-01-22 05:25] LABS: BASOPHIL (%) 0.2 % (0-1); EOSINOPHIL (%) 0.2 % (0-5); HEMATOCRIT 27.9 % (36.0-46.0); HEMOGLOBIN 9.3 G/DL (11.9-15.5); LYMPHOCYTE (%) 4.3 % (15-42); LYMPHOCYTE COUNT 0.2 K/uL (1.0-2.8); MCH 29.3 PG (29.0-34.0); MCHC 33.3 G/DL (30.0-36.0); MONOCYTE COUNT 0.4 K/uL (0-0.8); NEUTROPHIL (%) 86.3 % (45-76); NEUTROPHIL COUNT 4.2 K/uL (1.8-6.4); PLATELET COUNT 188 K/uL (156-360); RED BLOOD COUNT 3.17 M/uL (3.80-5.20); WHITE BLOOD COUNT 4.9 K/uL (4.1-10.2)
[2018-01-22 06:27] LABS: CHLORIDE 97 MEQ/L (99-109); CREATININE 3.2 MG/DL (0.6-1.3); GFR ESTIMATE (CALCULATED) 15 mL/min/; GLUCOSE 156 mg/dL (70-99); MAGNESIUM 2.2 mg/dl (1.3-2.7); POTASSIUM 3.7 MEQ/L (3.7-5.4); SODIUM 142 MEQ/L (136-147)
[2018-01-22 06:31] LABS: UREA NITROGEN (BUN) 193 mg/dL (9-23)
[2018-01-22 20:58] LABS: COMMENTS - BLOOD GASES A+C+; DEVICE VENT; FI02 30 %; MODE TC; PCO2 55 mm Hg (35-45); SITE LR; TOTAL RESP RATE 17 resp/min; pH 7.34 (7.35-7.45)
[2018-01-22 20:59] LABS: BASE EXCESS 3.1 mEq/L (-3 to +3); BICARBONATE 29.7 mEq/L (22-26); CARBOXY HGB 1.7 % (0-5); METHEMOGLOBIN 0.7 % (0-1.5); O2 SATURATION (CALCULATED) 97.7 % (95-99); PO2 83 mm Hg (80-100)
[2018-01-23] VITALS (24 sets, daily range): BP systolic 113–172; BP diastolic 55–89
[2018-01-23 06:33] LABS: CHLORIDE 99 MEQ/L (99-109); CREATININE 3.1 MG/DL (0.6-1.3); GFR ESTIMATE (CALCULATED) 15 mL/min/; GLUCOSE 140 mg/dL (70-99); MAGNESIUM 2.1 mg/dl (1.3-2.7); PHOSPHORUS 3.5 mg/dL (2.5-4.9); SODIUM 145 MEQ/L (136-147)
[2018-01-23 06:44] LABS: UREA NITROGEN (BUN) 209 mg/dL (9-23)
[2018-01-24] VITALS (24 sets, daily range): BP systolic 112–145; BP diastolic 52–79
[2018-01-24 04:45] LABS: ALBUMIN 3.5 g/dL (3.2-4.8); CHLORIDE 104 mEq/L (99-109); POTASSIUM 3.4 mEq/L (3.7-5.4); SODIUM 149 mEq/L (136-147)
[2018-01-24 04:47] LABS: MAGNESIUM 2.2 mg/dL (1.3-2.7)
[2018-01-24 04:48] LABS: GLUCOSE 140 mg/dL (70-99)
[2018-01-24 04:51] LABS: GFR ESTIMATE (CALCULATED) 16 mL/min/
[2018-01-24 05:03] LABS: PHOSPHORUS 2.6 mg/dL (2.5-4.9); UREA NITROGEN (BUN) 196 mg/dL (9-23)
[2018-01-25] VITALS (23 sets, daily range): BP systolic 92–141; BP diastolic 53–77
[2018-01-25 05:26] LABS: HEMATOCRIT 28.6 % (36.0-46.0); HEMOGLOBIN 9.1 G/DL (11.9-15.5); MCH 28.5 PG (29.0-34.0); MCHC 31.8 G/DL (30.0-36.0); MCV 89.7 FL (83-99); PLATELET COUNT 209 K/uL (156-360); RBC DIS.WIDTH-CV 16.5 % (11.8-14.6); RED BLOOD COUNT 3.19 M/uL (3.80-5.20); WHITE BLOOD COUNT 6.5 K/uL (4.1-10.2)
[2018-01-25 06:02] LABS: ALBUMIN 3.5 G/DL (3.2-4.8); ALKALINE PHOSPHATASE 88 IU/L (3-129); ALT (GPT) 26 IU/L (3-49); AST (GOT) 17 IU/L (2-34); CHLORIDE 105 MEQ/L (99-109); CHLORIDE 106 MEQ/L (99-109); CREATININE 2.8 MG/DL (0.6-1.3); CREATININE 2.9 MG/DL (0.6-1.3); GFR ESTIMATE (CALCULATED) 17 mL/min/; GLUCOSE 125 mg/dL (70-99); GLUCOSE 127 mg/dL (70-99); PHOSPHORUS 3.2 mg/dL (2.5-4.9); POTASSIUM 3.3 MEQ/L (3.7-5.4); POTASSIUM 3.4 MEQ/L (3.7-5.4); SODIUM 150 MEQ/L (136-147); SODIUM 152 MEQ/L (136-147); TOTAL BILIRUBIN 0.4 MG/DL (0.0-1.0)
[2018-01-25 06:06] LABS: TOTAL PROTEIN 6.2 G/DL (6.4-8.3)
[2018-01-25 08:32] LABS: UREA NITROGEN (BUN) 196 mg/dL (9-23)
[2018-01-25 09:02] LABS: UREA NITROGEN (BUN) 196 mg/dL (9-23)
[2018-01-26] VITALS (20 sets, daily range): BP systolic 111–142; BP diastolic 59–75
[2018-01-26 05:44] LABS: BASOPHIL (%) 0.3 % (0-1); EOSINOPHIL (%) 0.5 % (0-5); HEMOGLOBIN 8.7 G/DL (11.9-15.5); LYMPHOCYTE (%) 4.5 % (15-42); LYMPHOCYTE COUNT 0.3 K/uL (1.0-2.8); MCH 29.1 PG (29.0-34.0); MCHC 32.2 G/DL (30.0-36.0); MCV 90.3 FL (83-99); MONOCYTE (%) 5.7 % (3-12); MONOCYTE COUNT 0.3 K/uL (0-0.8); NEUTROPHIL COUNT 4.9 K/uL (1.8-6.4); PLATELET COUNT 199 K/uL (156-360); RBC DIS.WIDTH-CV 16.8 % (11.8-14.6); RBC DIS.WIDTH-SD 55.5 % (39-53); RED BLOOD COUNT 2.99 M/uL (3.80-5.20); WHITE BLOOD COUNT 5.8 K/uL (4.1-10.2)
[2018-01-26 06:42] LABS: CHLORIDE 108 MEQ/L (99-109); CREATININE 2.8 MG/DL (0.6-1.3); GFR ESTIMATE (CALCULATED) 17 mL/min/; GLUCOSE 158 mg/dL (70-99); POTASSIUM 3.7 MEQ/L (3.7-5.4); SODIUM 153 MEQ/L (136-147)
[2018-01-26 06:52] LABS: UREA NITROGEN (BUN) 180 mg/dL (9-23)
[2018-01-26 12:37] LABS: INTER. NORMALIZED RATIO 1.1
[2018-01-26 12:38] LABS: PTT 22.9 SEC (25-37)
[2018-01-27] VITALS (22 sets, daily range): BP systolic 111–154; BP diastolic 65–86
[2018-01-27 05:43] LABS: HEMATOCRIT 27.5 % (36.0-46.0); HEMOGLOBIN 8.8 G/DL (11.9-15.5); MCV 90.8 FL (83-99); PLATELET COUNT 180 K/uL (156-360); RBC DIS.WIDTH-CV 16.7 % (11.8-14.6); RBC DIS.WIDTH-SD 55.2 % (39-53); RED BLOOD COUNT 3.03 M/uL (3.80-5.20); WHITE BLOOD COUNT 6.7 K/uL (4.1-10.2)
[2018-01-27 06:22] LABS: CHLORIDE 108 MEQ/L (99-109); CREATININE 2.8 MG/DL (0.6-1.3); GFR ESTIMATE (CALCULATED) 17 mL/min/; GLUCOSE 122 mg/dL (70-99); POTASSIUM 3.4 MEQ/L (3.7-5.4); SODIUM 151 MEQ/L (136-147)
[2018-01-27 06:34] LABS: UREA NITROGEN (BUN) 176 mg/dL (9-23)
[2018-01-27 07:33] LABS: ABS NEUTROPHIL COUNT 6.1; ANISOCYTOSIS NONE SEEN; BAND NEUTROPHILS 3.6 % (0-8.0); EOSINOPHIL ABS CT 0; LYMPHOCYTES 2.7 % (15.0-45.0); METAMYELOCYTES 1.8 %; MONOCYTES 3.5 % (0-9.0); MYELOCYTES 0.9 %; PLAT.SUFFICIENCY ADEQUATE; SEG.NEUTROPHILS 87.5 % (46.0-76.0)
[2018-01-28] VITALS (15 sets, daily range): BP systolic 121–150; BP diastolic 56–80
[2018-01-28 05:01] LABS: BASOPHIL (%) 0.2 % (0-1); EOSINOPHIL (%) 0 % (0-5); HEMATOCRIT 27.1 % (36.0-46.0); IMMATURE GRANULOCYTE (%) 2.7 % (0.0-0.7); LYMPHOCYTE (%) 3.1 % (15-42); LYMPHOCYTE COUNT 0.3 K/uL (1.0-2.8); MCH 29.8 PG (29.0-34.0); MCHC 33.2 G/DL (30.0-36.0); MCV 89.7 FL (83-99); MONOCYTE (%) 6.2 % (3-12); MONOCYTE COUNT 0.6 K/uL (0-0.8); NEUTROPHIL (%) 87.8 % (45-76); NEUTROPHIL COUNT 8.9 K/uL (1.8-6.4); PLATELET COUNT 166 K/uL (156-360); RBC DIS.WIDTH-CV 16.7 % (11.8-14.6); RBC DIS.WIDTH-SD 55.1 % (39-53); RED BLOOD COUNT 3.02 M/uL (3.80-5.20); WHITE BLOOD COUNT 10.1 K/uL (4.1-10.2)
[2018-01-28 05:25] LABS: CHLORIDE 112 mEq/L (99-109); POTASSIUM 3.5 mEq/L (3.7-5.4); SODIUM 154 mEq/L (136-147)
[2018-01-28 05:26] LABS: MAGNESIUM 2.1 mg/dL (1.3-2.7)
[2018-01-28 05:27] LABS: GLUCOSE 143 mg/dL (70-99)
[2018-01-28 05:31] LABS: CREATININE 2.8 mg/dL (0.6-1.3); GFR ESTIMATE (CALCULATED) 17 mL/min/
[2018-01-28 05:43] LABS: PHOSPHORUS 3.6 mg/dL (2.5-4.9); UREA NITROGEN (BUN) 163 mg/dL (9-23)
[2018-01-29] VITALS (17 sets, daily range): BP systolic 115–154; BP diastolic 58–91
[2018-01-29 06:24] LABS: CHLORIDE 107 MEQ/L (99-109); CREATININE 2.5 MG/DL (0.6-1.3); GFR ESTIMATE (CALCULATED) 20 mL/min/; GLUCOSE 165 mg/dL (70-99); POTASSIUM 3.7 MEQ/L (3.7-5.4); SODIUM 149 MEQ/L (136-147)
[2018-01-29 06:42] LABS: PHOSPHORUS 4.9 mg/dL (2.5-4.9)
[2018-01-29 06:52] LABS: UREA NITROGEN (BUN) 139 mg/dL (9-23)
[2018-01-29 07:34] LABS: BASOPHIL (%) 0.3 % (0-1); EOSINOPHIL (%) 0.1 % (0-5); HEMATOCRIT 27.9 % (36.0-46.0); HEMOGLOBIN 8.4 G/DL (11.9-15.5); IMMATURE GRANULOCYTE (%) 3.4 % (0.0-0.7); LYMPHOCYTE (%) 3.3 % (15-42); LYMPHOCYTE COUNT 0.3 K/uL (1.0-2.8); MCH 28.7 PG (29.0-34.0); MCHC 30.1 G/DL (30.0-36.0); MONOCYTE (%) 3.8 % (3-12); MONOCYTE COUNT 0.4 K/uL (0-0.8); NEUTROPHIL (%) 89.1 % (45-76); NEUTROPHIL COUNT 8.2 K/uL (1.8-6.4); PLATELET COUNT 134 K/uL (156-360); RBC DIS.WIDTH-CV 16.7 % (11.8-14.6); RBC DIS.WIDTH-SD 58.3 % (39-53); RED BLOOD COUNT 2.93 M/uL (3.80-5.20); WHITE BLOOD COUNT 9.2 K/uL (4.1-10.2)
[2018-01-29 07:35] LABS: MCV 95.2 FL (83-99)
[2018-01-29 22:53] LABS: BASE EXCESS -1.5 mEq/L (-3 to +3); BICARBONATE 29.5 mEq/L (22-26); CARBOXY HGB 1.9 % (0-5); DEVICE VENT; MECHANICAL RATE 12 resp/min; METHEMOGLOBIN 1.3 % (0-1.5); MODE ACVC; PCO2 93 mm Hg (35-45); PO2 114 mm Hg (80-100); SITE RR; TIDAL VOLUME 400 ML; TOTAL RESP RATE 12 resp/min
[2018-01-29 22:54] LABS: PEEP 5 CM/H20; pH 7.11 (7.35-7.45)
[2018-01-30] VITALS (21 sets, daily range): BP systolic 113–151; BP diastolic 56–71
[2018-01-30 05:42] LABS: BASOPHIL (%) 0.2 % (0-1); EOSINOPHIL (%) 0.7 % (0-5); EOSINOPHIL COUNT 0.1 K/uL (0-0.3); HEMATOCRIT 29.5 % (36.0-46.0); HEMOGLOBIN 8.8 G/DL (11.9-15.5); IMMATURE GRANULOCYTE (%) 2.2 % (0.0-0.7); LYMPHOCYTE (%) 4.1 % (15-42); LYMPHOCYTE COUNT 0.5 K/uL (1.0-2.8); MCH 28.7 PG (29.0-34.0); MCHC 29.8 G/DL (30.0-36.0); MCV 96.1 FL (83-99); MONOCYTE (%) 8.6 % (3-12); NEUTROPHIL (%) 84.2 % (45-76); NEUTROPHIL COUNT 10.2 K/uL (1.8-6.4); NRBC (%) 0.2 /100 WBC (0-0); PLATELET COUNT 118 K/uL (156-360); RBC DIS.WIDTH-SD 56.5 % (39-53); RED BLOOD COUNT 3.07 M/uL (3.80-5.20); WHITE BLOOD COUNT 12.1 K/uL (4.1-10.2)
[2018-01-30 06:08] LABS: ALBUMIN 3.1 G/DL (3.2-4.8); ALKALINE PHOSPHATASE 80 IU/L (3-129); ALT (GPT) 29 IU/L (3-49); AST (GOT) 22 IU/L (2-34); CHLORIDE 102 MEQ/L (99-109); CREATININE 2.5 MG/DL (0.6-1.3); GFR ESTIMATE (CALCULATED) 20 mL/min/; GLUCOSE 134 mg/dL (70-99); MAGNESIUM 1.9 mg/dl (1.3-2.7); PHOSPHORUS 5.2 mg/dL (2.5-4.9); POTASSIUM 3.4 MEQ/L (3.7-5.4); SODIUM 143 MEQ/L (136-147); TOTAL PROTEIN 6.2 G/DL (6.4-8.3)
[2018-01-30 06:14] LABS: TOTAL BILIRUBIN 0.3 MG/DL (0.0-1.0)
[2018-01-30 06:23] LABS: UREA NITROGEN (BUN) 124 mg/dL (9-23)
[2018-01-31] VITALS (23 sets, daily range): BP systolic 101–160; BP diastolic 49–79
[2018-01-31 05:17] LABS: BASOPHIL (%) 0.1 % (0-1); EOSINOPHIL (%) 0.5 % (0-5); EOSINOPHIL COUNT 0.1 K/uL (0-0.3); HEMATOCRIT 27.3 % (36.0-46.0); HEMOGLOBIN 8.5 G/DL (11.9-15.5); LYMPHOCYTE (%) 3.5 % (15-42); LYMPHOCYTE COUNT 0.4 K/uL (1.0-2.8); MCH 28.6 PG (29.0-34.0); MCHC 31.1 G/DL (30.0-36.0); MONOCYTE (%) 4.9 % (3-12); MONOCYTE COUNT 0.6 K/uL (0-0.8); NEUTROPHIL COUNT 10.6 K/uL (1.8-6.4); PLATELET COUNT 106 K/uL (156-360); RBC DIS.WIDTH-CV 15.8 % (11.8-14.6); RBC DIS.WIDTH-SD 53.1 % (39-53); RED BLOOD COUNT 2.97 M/uL (3.80-5.20); WHITE BLOOD COUNT 11.7 K/uL (4.1-10.2)
[2018-01-31 05:29] LABS: MCV 91.9 FL (83-99)
[2018-01-31 06:07] LABS: CHLORIDE 105 MEQ/L (99-109); CREATININE 2.4 MG/DL (0.6-1.3); GFR ESTIMATE (CALCULATED) 21 mL/min/; GLUCOSE 145 mg/dL (70-99); POTASSIUM 3.4 MEQ/L (3.7-5.4); SODIUM 144 MEQ/L (136-147)
[2018-01-31 06:11] LABS: UREA NITROGEN (BUN) 125 mg/dL (9-23)
[2018-02-01] VITALS (14 sets, daily range): BP systolic 138–158; BP diastolic 64–77
[2018-02-01 05:36] LABS: BASOPHIL (%) 0.3 % (0-1); EOSINOPHIL (%) 0.8 % (0-5); EOSINOPHIL COUNT 0.1 K/uL (0-0.3); HEMATOCRIT 27.6 % (36.0-46.0); HEMOGLOBIN 8.6 G/DL (11.9-15.5); IMMATURE GRANULOCYTE (%) 0.8 % (0.0-0.7); LYMPHOCYTE (%) 4.6 % (15-42); LYMPHOCYTE COUNT 0.4 K/uL (1.0-2.8); MCH 28.9 PG (29.0-34.0); MCHC 31.2 G/DL (30.0-36.0); MCV 92.6 FL (83-99); MONOCYTE (%) 5.3 % (3-12); MONOCYTE COUNT 0.4 K/uL (0-0.8); NEUTROPHIL (%) 88.2 % (45-76); NEUTROPHIL COUNT 6.6 K/uL (1.8-6.4); PLATELET COUNT 96 K/uL (156-360); RBC DIS.WIDTH-CV 15.8 % (11.8-14.6); RBC DIS.WIDTH-SD 53.3 % (39-53); RED BLOOD COUNT 2.98 M/uL (3.80-5.20); WHITE BLOOD COUNT 7.5 K/uL (4.1-10.2)
[2018-02-01 06:04] LABS: ALBUMIN 2.9 G/DL (3.2-4.8); ALKALINE PHOSPHATASE 80 IU/L (3-129); ALT (GPT) 21 IU/L (3-49); AST (GOT) 16 IU/L (2-34); CHLORIDE 106 MEQ/L (99-109); CREATININE 2.3 MG/DL (0.6-1.3); GFR ESTIMATE (CALCULATED) 22 mL/min/; GLUCOSE 135 mg/dL (70-99); MAGNESIUM 1.9 mg/dl (1.3-2.7); POTASSIUM 3.6 MEQ/L (3.7-5.4); SODIUM 146 MEQ/L (136-147); TOTAL BILIRUBIN 0.3 MG/DL (0.0-1.0); TOTAL PROTEIN 5.6 G/DL (6.4-8.3)
[2018-02-01 06:07] LABS: UREA NITROGEN (BUN) 109 mg/dL (9-23)
== END 2018-02-01 15:08 | disposition designated cancer center or children's hospital (05) | DRG 3 ==
LOC: ENRESERV 21:47 → 4EAST 12-23 05:41 → 2SOUTH 12-23 05:41 → 4WEST 12-23 05:41 → 2SOUTH 12-23 11:33 → ENRESERV 12-23 12:57 → 2SOUTH 12-23 13:21 → ENRESERV 12-23 15:06 → 4EAST 12-23 15:34 → ENRESERV 12-26 20:20 → 4WEST 12-26 20:46 → ENRESERV 12-31 10:53 → 4EAST 12-31 12:08 → ENRESERV 01-03 14:58 → 4WEST 01-03 17:30
PROVIDERS: Emergency Medicine; Internal Medicine; Internal Medicine Cardiovascular Disease; Internal Medicine Critical Care Medicine; Internal Medicine Gastroenterology; Internal Medicine Nephrology; Physician Assistant; Specialist; Surgery
PROC: 0DTN0ZZ Resection of Sigmoid Colon, Open Approach (ICD-10-PCS; principal; 2017-12-23)
PROC: 0DJD8ZZ Inspection of Lower Intestinal Tract, Via Natural or Artificial Opening Endoscopic (ICD-10-PCS; 2017-12-23)
PROC: 02HV33Z Insertion of Infusion Device into Superior Vena Cava, Percutaneous Approach (ICD-10-PCS; 2017-12-23)
PROC: 03HY32Z Insertion of Monitoring Device into Upper Artery, Percutaneous Approach (ICD-10-PCS; 2017-12-23)
PROC: 30233N1 Transfusion of Nonautologous Red Blood Cells into Peripheral Vein, Percutaneous Approach (ICD-10-PCS; 2017-12-25)
PROC: 5A1945Z Respiratory Ventilation, 24-96 Consecutive Hours (ICD-10-PCS; 2017-12-26)
PROC: 0BH17EZ Insertion of Endotracheal Airway into Trachea, Via Natural or Artificial Opening (ICD-10-PCS; 2017-12-26)
PROC: 30253R1 (ICD-10-PCS; 2018-01-02)
PROC: 0DB68ZX Excision of Stomach, Via Natural or Artificial Opening Endoscopic, Diagnostic (ICD-10-PCS; 2018-01-02)
PROC: 0DJD8ZZ Inspection of Lower Intestinal Tract, Via Natural or Artificial Opening Endoscopic (ICD-10-PCS; 2018-01-02)
PROC: 0D1L0Z4 Bypass Transverse Colon to Cutaneous, Open Approach (ICD-10-PCS; 2018-01-03)
PROC: 3E1M38Z Irrigation of Peritoneal Cavity using Irrigating Substance, Percutaneous Approach (ICD-10-PCS; 2018-01-03)
PROC: 0W9G0ZZ Drainage of Peritoneal Cavity, Open Approach (ICD-10-PCS; 2018-01-03)
PROC: 3E0436Z Introduction of Nutritional Substance into Central Vein, Percutaneous Approach (ICD-10-PCS; 2018-01-04)
PROC: 5A1955Z Respiratory Ventilation, Greater than 96 Consecutive Hours (ICD-10-PCS; 2018-01-05)
PROC: 0BH18EZ Insertion of Endotracheal Airway into Trachea, Via Natural or Artificial Opening Endoscopic (ICD-10-PCS; 2018-01-05)
PROC: 0BH17EZ Insertion of Endotracheal Airway into Trachea, Via Natural or Artificial Opening (ICD-10-PCS; 2018-01-11)
PROC: 5A1945Z Respiratory Ventilation, 24-96 Consecutive Hours (ICD-10-PCS; 2018-01-11)
PROC: 0BH18EZ Insertion of Endotracheal Airway into Trachea, Via Natural or Artificial Opening Endoscopic (ICD-10-PCS; 2018-01-15)
PROC: 5A1955Z Respiratory Ventilation, Greater than 96 Consecutive Hours (ICD-10-PCS; 2018-01-15)
PROC: 0DJ08ZZ Inspection of Upper Intestinal Tract, Via Natural or Artificial Opening Endoscopic (ICD-10-PCS; 2018-01-16)
PROC: 0B110F4 Bypass Trachea to Cutaneous with Tracheostomy Device, Open Approach (ICD-10-PCS; 2018-01-27)
PROC: 0DH63UZ Insertion of Feeding Device into Stomach, Percutaneous Approach (ICD-10-PCS; 2018-01-27)
DX: C18.7 Malignant neoplasm of sigmoid colon (principal); G93.49 Other encephalopathy; N17.0 Acute kidney failure with tubular necrosis; J95.822 Acute and chronic postprocedural respiratory failure; K92.1 Melena; E87.0 Hyperosmolality and hypernatremia; E87.4 Mixed disorder of acid-base balance; Z66 Do not resuscitate; Z51.5 Encounter for palliative care; K22.10 Ulcer of esophagus without bleeding; C77.2 Secondary and unspecified malignant neoplasm of intra-abdominal lymph nodes; K25.3 Acute gastric ulcer without hemorrhage or perforation; T85.638A Leakage of other specified internal prosthetic devices, implants and grafts, initial encounter; Z99.11 Dependence on respirator [ventilator] status; I97.89 Other postprocedural complications and disorders of the circulatory system, not elsewhere classified; J44.1 Chronic obstructive pulmonary disease with (acute) exacerbation; C77.5 Secondary and unspecified malignant neoplasm of intrapelvic lymph nodes; N18.3 Chronic kidney disease, stage 3 (moderate); I12.9 Hypertensive chronic kidney disease with stage 1 through stage 4 chronic kidney disease, or unspecified chronic kidney disease; R18.8 Other ascites; I25.10 Atherosclerotic heart disease of native coronary artery without angina pectoris; I48.0 Paroxysmal atrial fibrillation; E66.01 Morbid (severe) obesity due to excess calories; D64.9 Anemia, unspecified; F41.9 Anxiety disorder, unspecified; I27.20 Pulmonary hypertension, unspecified; N73.6 Female pelvic peritoneal adhesions (postinfective); E87.6 Hypokalemia; E87.70 Fluid overload, unspecified; I87.8 Other specified disorders of veins; K57.90 Diverticulosis of intestine, part unspecified, without perforation or abscess without bleeding; L27.0 Generalized skin eruption due to drugs and medicaments taken internally; K26.9 Duodenal ulcer, unspecified as acute or chronic, without hemorrhage or perforation; K29.70 Gastritis, unspecified, without bleeding; K29.80 Duodenitis without bleeding; K44.9 Diaphragmatic hernia without obstruction or gangrene; I95.9 Hypotension, unspecified; K80.20 Calculus of gallbladder without cholecystitis without obstruction; R13.10 Dysphagia, unspecified; N99.0 Postprocedural (acute) (chronic) kidney failure; Z80.3 Family history of malignant neoplasm of breast; Z80.0 Family history of malignant neoplasm of digestive organs; Z95.5 Presence of coronary angioplasty implant and graft; Z68.37 Body mass index [BMI] 37.0-37.9, adult; Z86.010 Personal history of colon polyps; Z87.891 Personal history of nicotine dependence; Z99.81 Dependence on supplemental oxygen; Z79.02 Long term (current) use of antithrombotics/antiplatelets; Z79.82 Long term (current) use of aspirin; Z85.41 Personal history of malignant neoplasm of cervix uteri; Z90.710 Acquired absence of both cervix and uterus; I25.2 Old myocardial infarction; Z88.1 Allergy status to other antibiotic agents; Z82.49 Family history of ischemic heart disease and other diseases of the circulatory system
CPT/HCPCS: 31500; 36415; 36600; 71045; 71250; 74018; 76770; 80048; 80048 91; 80053; 80069; 80076; 80162; 81003; 81050; 82248; 82272; 82570; 82803; 82948; 83605; 83735; 83880; 84100; 84134; 84156; 84478; 84484; 84540; 84630 90; 85014; 85018; 85025; 85027; 85610; 85730; 86850; 86900; 86901; 86920; 87040; 87070; 87075; 87076; 87077; 87086; 87106; 87185; 87186; 87205; 87641; 88302; 88305; 88309; 88342 TC; 89190; 92610 GN; 93005; 94002; 94003; 94010; 94640; 94640 76; 94644; 94760; 94799; 97530 GO; 97530 GP; 99202; C1753; C9113; J0330; J0692; J0696; J1100; J1160; J1170; J1200; J1335; J1450; J1644; J1720; J1815; J1940; J1956; J2060; J2250; J2270; J2370; J2405; J2543; J2704; J2710; J2795; J2920; J2930; J3010; J3370; J3475; J3480; J7030; J7040; J7050; J7070; J7120; J7512; J7643; P9016; P9035; P9045; P9047; Q0175; S0020; S0028; S0030

== ENCOUNTER 2018-02-22 16:29 | Inpatient (IN) | payer OTHER, BC ==
[~2018-02-22] VITALS: Ht 165.1 cm; Wt 79.4 kg
[2018-02-22 17:15] LABS: COMMENTS - BLOOD GASES A+C+; DEVICE VENT; FI02 28 %; SITE RR
[2018-02-22 17:16] LABS: MECHANICAL RATE 12 resp/min; MODE SIMVVC; PEEP 5 CM/H20; PRES. SUPPORT 10 CM/H2O; TIDAL VOLUME 550 ML; TOTAL RESP RATE 12 resp/min
[2018-02-22 17:17] LABS: BICARBONATE 46.8 mEq/L (22-26); PCO2 56 mm Hg (35-45); PO2 71 mm Hg (80-100); pH 7.53 (7.35-7.45)
[2018-02-22 17:18] LABS: CARBOXY HGB 2 % (0-5); METHEMOGLOBIN 1.3 % (0-1.5)
[2018-02-22 17:28] LABS: BASE EXCESS 21.5 mEq/L (-3 to +3)
[2018-02-22 18:01] LABS: BASOPHIL (%) 0.2 % (0-1); EOSINOPHIL (%) 0.5 % (0-5); EOSINOPHIL COUNT 0.1 K/uL (0-0.3); HEMATOCRIT 29.1 % (36.0-46.0); IMMATURE GRANULOCYTE (%) 1.3 % (0.0-0.7); LYMPHOCYTE (%) 8.9 % (15-42); LYMPHOCYTE COUNT 0.9 K/uL (1.0-2.8); MCH 28.3 PG (29.0-34.0); MCHC 30.9 G/DL (30.0-36.0); MCV 91.5 FL (83-99); MONOCYTE (%) 5.5 % (3-12); MONOCYTE COUNT 0.6 K/uL (0-0.8); NEUTROPHIL (%) 83.6 % (45-76); NEUTROPHIL COUNT 8.8 K/uL (1.8-6.4); RBC DIS.WIDTH-CV 14.3 % (11.8-14.6); RBC DIS.WIDTH-SD 48.4 % (39-53); RED BLOOD COUNT 3.18 M/uL (3.80-5.20); WHITE BLOOD COUNT 10.5 K/uL (4.1-10.2)
[2018-02-22 18:20] LABS: ALBUMIN 2.8 g/dL (3.2-4.8)
[2018-02-22 18:21] LABS: CHLORIDE 89 mEq/L (99-109); PLATELET COUNT 175 K/uL (156-360); SODIUM 138 mEq/L (136-147)
[2018-02-22 18:23] LABS: GLUCOSE 145 mg/dL (70-99)
[2018-02-22 18:25] LABS: TOTAL BILIRUBIN 0.3 mg/dL (0.0-1.0)
[2018-02-22 18:26] LABS: ALKALINE PHOSPHATASE 95 IU/L (3-129)
[2018-02-22 18:27] LABS: CREATININE 1.4 mg/dL (0.6-1.3); GFR ESTIMATE (CALCULATED) 39 mL/min/
[2018-02-22 18:28] LABS: AST (GOT) 22 IU/L (2-34); UREA NITROGEN (BUN) 53 mg/dL (9-23)
[2018-02-22 18:30] LABS: ALT (GPT) 30 IU/L (3-49)
[2018-02-22 18:32] LABS: TROP-I INTERPRETATION NEGATIVE; TROPONIN-I 0.02 ng/mL (0.0-0.30)
[2018-02-22 18:45] LABS: CARBON DIOXIDE (BICARBONATE) > 40.0 mEq/L (20-31)
[2018-02-22] MEDS ORDERED: PROTONIX40 M1 GT (20:36)
[2018-02-22] MEDS ORDERED: METOPROLOL TART25 MG GT (20:37)
[2018-02-22] MEDS ORDERED: CATAPRES0.1 MG GT (20:45)
[2018-02-22] MEDS ORDERED: ATIVAN0.5 MG GT (20:47)
[2018-02-22] MEDS ORDERED: FLUTICASONE PRO16 GM BOTH NARES (20:48)
[2018-02-22] MEDS ORDERED: MAGNESIUM OXID400 MG GT (20:50)
[2018-02-22 21:15] VITALS: BP 112/77; BP 131/67
[2018-02-22 22:00] VITALS: BP 129/64
[2018-02-22 22:22] LABS: COMMENTS - BLOOD GASES C+; SITE RR
[2018-02-22 22:23] LABS: DEVICE VENT; FI02 28 %; MECHANICAL RATE 12 resp/min; MODE SIMV; PEEP 5 CM/H20; PRES. SUPPORT 10 CM/H2O; TOTAL RESP RATE 12 resp/min
[2018-02-22 22:24] LABS: BASE EXCESS 19.6 mEq/L (-3 to +3); BICARBONATE 43.9 mEq/L (22-26); CARBOXY HGB 1.4 % (0-5); METHEMOGLOBIN 0.9 % (0-1.5); O2 SATURATION (CALCULATED) 94.8 % (95-99); PCO2 49 mm Hg (35-45); PO2 64 mm Hg (80-100); pH 7.56 (7.35-7.45)
[2018-02-22 22:25] LABS: TIDAL VOLUME 550 ML
[2018-02-23] VITALS (11 sets, daily range): BP systolic 94–177; BP diastolic 52–87
[2018-02-23 01:17] LABS: COMMENTS - BLOOD GASES C+; DEVICE VENT; FI02 28 %; MECHANICAL RATE 8 resp/min; MODE SIMV; PEEP 5 CM/H20; PRES. SUPPORT 10 CM/H2O; SITE RR; TIDAL VOLUME 420 ML; TOTAL RESP RATE 15 resp/min
[2018-02-23 01:18] LABS: BASE EXCESS 21.1 mEq/L (-3 to +3); BICARBONATE 46.8 mEq/L (22-26); CARBOXY HGB 1.6 % (0-5); METHEMOGLOBIN 0.9 % (0-1.5); O2 SATURATION (CALCULATED) 94.4 % (95-99); PCO2 60 mm Hg (35-45); PO2 65 mm Hg (80-100)
[2018-02-23 06:42] LABS: SITE RR
[2018-02-23 06:43] LABS: COMMENTS - BLOOD GASES C+; DEVICE VENT; FI02 28 %; MECHANICAL RATE 6 resp/min; MODE SIMV; PCO2 58 mm Hg (35-45); PEEP 5 CM/H20; PO2 62 mm Hg (80-100); PRES. SUPPORT 10 CM/H2O; TIDAL VOLUME 350 ML; TOTAL RESP RATE 13 resp/min; pH 7.52 (7.35-7.45)
[2018-02-23 06:44] LABS: BICARBONATE 47.4 mEq/L (22-26); CARBOXY HGB 2.6 % (0-5); METHEMOGLOBIN 0.8 % (0-1.5); O2 SATURATION (CALCULATED) 93.8 % (95-99)
== END 2018-02-23 16:50 | disposition short-term general hospital (02) | DRG 208 ==
LOC: EME 16:29 → EDOF 20:05 → 4WEST 20:05 → ENRESERV 20:09 → 4WEST 21:03
PROVIDERS: Emergency Medicine; Surgery
PROC: 5A1935Z Respiratory Ventilation, Less than 24 Consecutive Hours (ICD-10-PCS; principal; 2018-02-22)
DX: J96.21 Acute and chronic respiratory failure with hypoxia (principal); J44.9 Chronic obstructive pulmonary disease, unspecified; I25.10 Atherosclerotic heart disease of native coronary artery without angina pectoris; I48.0 Paroxysmal atrial fibrillation; M25.571 Pain in right ankle and joints of right foot; J96.22 Acute and chronic respiratory failure with hypercapnia; E87.4 Mixed disorder of acid-base balance; C80.1 Malignant (primary) neoplasm, unspecified; M79.89 Other specified soft tissue disorders; K62.5 Hemorrhage of anus and rectum; I10 Essential (primary) hypertension; Z87.891 Personal history of nicotine dependence; Z90.710 Acquired absence of both cervix and uterus; Z93.1 Gastrostomy status; Z93.3 Colostomy status; Z93.0 Tracheostomy status; Z85.41 Personal history of malignant neoplasm of cervix uteri; Z99.81 Dependence on supplemental oxygen; Z95.5 Presence of coronary angioplasty implant and graft
CPT/HCPCS: 36600; 71045; 80053; 83605; 83880; 84484; 85025; 87070; 87077; 87081; 87186; 87205; 87641; 93005; 94002; 94003; 94640; 94760; 94799; J1644